=== PATIENT | male | born 1955 | race Hispanic/Latino ===

== ENCOUNTER → 2017-10-15 | Outpatient (CLI) | payer MEDICARE ==
[~2017-10-15] MED LIST: AEC81 PO; ALBU8.5H8 IH; AMIO200T5 PO; AMLO5TAB2 PO; ATOR10 PO; BUDE10.22 IH; DOCU100T PO; FERR-82 PO; FURO-152 PO; FURO40TA7 PO; IPRAHFA IH; ISOS30TA6 PO; LEVO50 PO; MECL-111 PO; METO25 PO; METO25TA6 PO; MV C1CAP5 PO; ONDA4TAB10 PO; PANT40TA25 PO; RIVA20TA PO; ROPI1TAB38 PO; SIMV20TA6 PO
== END | disposition home or self-care (01) ==
LOC: RAH 08:36
PROVIDERS: ATTEND Surgery
DX: K57.30 Diverticulosis of large intestine without perforation or abscess without bleeding (principal); K46.9 Unspecified abdominal hernia without obstruction or gangrene; M43.16 Spondylolisthesis, lumbar region; M51.37 Other intervertebral disc degeneration, lumbosacral region; I51.7 Cardiomegaly
CPT/HCPCS: 74150

== ENCOUNTER → 2017-10-24 | Outpatient (CLI) | payer MEDICARE ==
[~2017-10-24] VITALS: Ht 27.9 cm; Wt 160.6 kg
== END | disposition home or self-care (01) ==
LOC: DTH 10:19
PROVIDERS: ATTEND Surgery
DX: E11.9 Type 2 diabetes mellitus without complications (principal); E66.09 Other obesity due to excess calories
CPT/HCPCS: 97802

== ENCOUNTER 2017-11-11 04:50 | Inpatient (IN) | payer MEDICARE ==
[~2017-11-11] VITALS: Ht 180.3 cm; Wt 157.9 kg
[~2017-11-11 04:50] MED LIST changes: -AMLO5TAB2 PO; -ATOR10 PO; -BUDE10.22 IH; -FURO40TA7 PO; -ISOS30TA6 PO; -LEVO50 PO; -METO25 PO; -MV C1CAP5 PO; -PANT40TA25 PO
[2017-11-11] MEDS ORDERED: IPRATROPIUM/ALBUTEROL SULFATE 3 ML SOLUTION IH ONE ×2 (05:19→10:51)
[2017-11-11 05:23] LABS: BASOPHILS % (AUTO) 0.6 % (0.0-5.0); EOSINOPHILS % (AUTO) 1.3 % (0.0-8.0); HEMATOCRIT 38.4 % (42-54); LYMPHOCYTES % (AUTO) 10.8 % (21.0-51.0); MEAN CORPUSCULAR HEMOGLOBIN 26.5 pg (27.0-33.0); MEAN CORPUSCULAR HGB CONC 32.2 g/dL (32.0-36.0); MEAN CORPUSCULAR VOLUME 82.2 fL (79-99); MONOCYTES % (AUTO) 7.9 % (3.0-13.0); NEUTROPHILS % (AUTO) 79.4 % (40.0-77.0); NUCLEATED RED BLOOD CELLS 0.2 % (0.0-0.19); PLATELET COUNT (AUTO) 314 K/uL (130-400); RED BLOOD CELL COUNT(AUTO) 4.67 MIL/uL (4.50-6.20); RED CELL DISTRIBUTION WIDTH 19.4 % (11.0-15.5); WHITE BLOOD COUNT (AUTO) 9.8 K/uL (4.8-10.8)
[2017-11-11 05:27] LABS: ABG BASE EXCESS 5.3 mmol/L (-2.0-3.0); ABG HCO3 32.9 mmol/L (21.0-28.0); ABG OXYGEN SATURATION 72.8 % (95.0-99.0); ABG PCO2 61 mmHg (35-48)
[2017-11-11 05:44] LABS: CREATININE 1.6 mg/dL (0.5-1.5); POTASSIUM 3.8 mmol/L (3.5-5.1)
[2017-11-11 05:49] LABS: ALBUMIN 3.2 g/dL (3.5-5.0); BILIRUBIN,TOTAL 0.7 mg/dL (0.2-1.0); TOTAL PROTEIN, SERUM 8.6 g/dL (6.0-8.3)
[2017-11-11] MEDS ORDERED: FUROSEMIDE 10 MG/ML 2ML VIAL ONE (05:59)
[2017-11-11] MEDS ORDERED: ENOXAPARIN SODIUM 100 MG/1 ML SQ ONE (08:01)
[2017-11-11] MEDS ORDERED: HYDRALAZINE HCL 20 MG/ML VIAL IV PRN (09:00)
[2017-11-11] MEDS ORDERED: ONDANSETRON HCL 4 MG/2 ML VIAL IV PRN (09:00)
[2017-11-11] MEDS ORDERED: LACTULOSE 20 GM/30 ML UDCUP PO PRN (09:00)
[2017-11-11] MEDS: FAMOTIDINE 20MG TAB 20 MG TAB PO SCH ×2 (09:00→21:26)
[2017-11-11] MEDS ORDERED: ACETAMINOPHEN 325 MG TAB PO PRN ×2 (09:00)
[2017-11-11] MEDS ORDERED: MAG HYDROX/AL HYDROX/SIMETH ES 30 ML SUSP UDCUP PO PRN (09:00)
[2017-11-11] MEDS ORDERED: MORPHINE SULFATE 2 MG/ML 1ML SYG IV PRN (09:00)
[2017-11-11] MEDS ORDERED: NITROGLYCERIN 0.4 MG SL TAB SL PRN (09:00)
[2017-11-11] MEDS ORDERED: GUAIFENESIN-DM 200/20 MG 10 ML PO PRN (09:00)
[2017-11-11] MEDS: ENOXAPARIN SODIUM 40 MG/0.4 ML SYRINGE SQ SCH (09:00)
[2017-11-11] MEDS ORDERED: ACETAMINOPHEN-CODEINE 300/30MG TAB PO PRN (09:00)
[2017-11-11] MEDS: FUROSEMIDE 10 MG/ML 4ML VIAL IVP SCH ×2 (09:00→21:26)
[2017-11-11] MEDS ORDERED: FAMOTIDINE 20MG TAB 20 MG TAB ONE (09:57)
[2017-11-11] MEDS: IPRATROPIUM/ALBUTEROL SULFATE 3 ML SOLUTION IH SCH ×3 (11:15→23:51)
[2017-11-11 12:13] VITALS: BP 142/67
[2017-11-11 12:41] LABS: CREATINE KINASE MB 1.5 ng/mL (0.5-3.6); CREATINE KINASE, TOTAL 107 U/L (21-232); MYOGLOBIN 98 ng/mL (10-92); TROPONIN I < 0.04 ng/mL (0.00-0.06)
[2017-11-11] MEDS ORDERED: PANT40TA25 PO (12:51)
[2017-11-11] MEDS ORDERED: MV C1CAP5 PO (12:51)
[2017-11-11] MEDS ORDERED: AMLO5TAB2 PO (12:51)
[2017-11-11] MEDS ORDERED: ATOR10 PO (12:51)
[2017-11-11] MEDS ORDERED: LEVO50 PO (12:51)
[2017-11-11] MEDS ORDERED: BUDE10.22 IH (12:51)
[2017-11-11 16:03] VITALS: BP 101/66
[2017-11-11] MEDS ORDERED: ALBUTEROL SULFATE 0.083% 2.5 MG/3 ML INH IH SCH (18:00)
[2017-11-11] MEDS: BUDESONIDE 0.5 MG/2 ML INH IH SCH (18:04)
[2017-11-11 18:07] LABS: TOTAL PROTEIN, SERUM 7.6 g/dL (6.0-8.3)
[2017-11-11 19:04] VITALS: BP 108/38
[2017-11-11] MEDS: ROPINIROLE HCL 1 MG TABLET PO SCH (21:26)
[2017-11-11] MEDS: ATORVASTATIN CALCIUM 20 MG TABLET PO SCH (21:26)
[2017-11-11] MEDS: METOPROLOL TARTRATE 25 MG TAB PO SCH (21:26)
[2017-11-11 21:28] LABS: CREATINE KINASE MB 1.5 ng/mL (0.5-3.6); CREATINE KINASE, TOTAL 98 U/L (21-232); MYOGLOBIN 101 ng/mL (10-92); TROPONIN I < 0.04 ng/mL (0.00-0.06)
[2017-11-11 23:28] VITALS: BP 124/61
[2017-11-12 03:25] VITALS: BP 98/38
[2017-11-12 04:37] LABS: HEMATOCRIT 35.4 % (42-54); MEAN CORPUSCULAR HEMOGLOBIN 25.8 pg (27.0-33.0); MEAN CORPUSCULAR HGB CONC 31.5 g/dL (32.0-36.0); MEAN CORPUSCULAR VOLUME 82.1 fL (79-99); PLATELET COUNT (AUTO) 255 K/uL (130-400); RED BLOOD CELL COUNT(AUTO) 4.32 MIL/uL (4.50-6.20); RED CELL DISTRIBUTION WIDTH 19.2 % (11.0-15.5); WHITE BLOOD COUNT (AUTO) 8.3 K/uL (4.8-10.8)
[2017-11-12 04:47] LABS: CREATININE 1.6 mg/dL (0.5-1.5); POTASSIUM 3.7 mmol/L (3.5-5.1)
[2017-11-12 04:58] LABS: B-TYPE NATRIURETIC PEPTIDE 221 pg/mL (0-100)
[2017-11-12] MEDS: IPRATROPIUM/ALBUTEROL SULFATE 3 ML SOLUTION IH SCH ×4 (06:42→23:09)
[2017-11-12] MEDS: BUDESONIDE 0.5 MG/2 ML INH IH SCH ×2 (06:56→17:41)
[2017-11-12 07:33] VITALS: BP 120/69
[2017-11-12] MEDS: PANTOPRAZOLE SODIUM 40 MG TABLET.DR PO SCH (09:00)
[2017-11-12] MEDS ORDERED: AMLODIPINE BESYLATE 5 MG TAB PO SCH (09:00)
[2017-11-12] MEDS: ENOXAPARIN SODIUM 40 MG/0.4 ML SYRINGE SQ SCH (09:00)
[2017-11-12] MEDS: LEVOTHYROXINE 50 MCG TABLET PO SCH (09:00)
[2017-11-12] MEDS: AMIODARONE HCL 200 MG TABLET PO SCH (09:00)
[2017-11-12] MEDS: ASPIRIN 81 MG EC TAB PO SCH (09:00)
[2017-11-12] MEDS: FUROSEMIDE 10 MG/ML 4ML VIAL IVP SCH ×2 (09:00→20:29)
[2017-11-12] MEDS: METOPROLOL TARTRATE 25 MG TAB PO SCH ×2 (09:00→20:29)
[2017-11-12] MEDS: SE TAN PLUS PO SCH (09:00)
[2017-11-12] MEDS: FAMOTIDINE 20MG TAB 20 MG TAB PO SCH ×2 (09:00→20:29)
[2017-11-12 09:25] LABS: INR 1.15 (0.85-1.15); PARTIAL THROMBOPLASTIN TIME 29.8 SEC (26.3-35.5)
[2017-11-12 11:14] VITALS: BP 142/67
[2017-11-12 13:48] LABS: APPEARANCE BODY FLUID SLIGHTLY CLOUDY (CLEAR); BODY FLUID WBC 240 /cu. mm.; COLOR,BODY FLUID ORANGE (LT YELLOW); SPECIMENTYPE,BODY FLUID PLEURAL; TOTAL VOLUME,BODY FLUID 1000 mL
[2017-11-12 13:49] LABS: BODY FLUID RBC 7675 /cu. mm.
[2017-11-12 14:09] LABS: BF LYMPHOCYTE 74 %; BF MESOTHELIAL 5 %; BF MONOCYTE 9 %
[2017-11-12 16:34] VITALS: BP 100/51
[2017-11-12 19:14] VITALS: BP 131/63
[2017-11-12] MEDS: ATORVASTATIN CALCIUM 20 MG TABLET PO SCH (20:29)
[2017-11-12] MEDS: ROPINIROLE HCL 1 MG TABLET PO SCH (20:29)
[2017-11-12 23:12] VITALS: BP 114/51
[2017-11-13 04:00] LABS: HEMATOCRIT 36.1 % (42-54); MEAN CORPUSCULAR HEMOGLOBIN 26.7 pg (27.0-33.0); MEAN CORPUSCULAR HGB CONC 32.5 g/dL (32.0-36.0); MEAN CORPUSCULAR VOLUME 82.4 fL (79-99); PLATELET COUNT (AUTO) 270 K/uL (130-400); RED BLOOD CELL COUNT(AUTO) 4.38 MIL/uL (4.50-6.20); RED CELL DISTRIBUTION WIDTH 19.2 % (11.0-15.5)
[2017-11-13 04:05] VITALS: BP 108/64
[2017-11-13 04:17] LABS: CREATININE 1.4 mg/dL (0.5-1.5); POTASSIUM 3.7 mmol/L (3.5-5.1)
[2017-11-13] MEDS: BUDESONIDE 0.5 MG/2 ML INH IH SCH ×2 (05:07→19:23)
[2017-11-13] MEDS: IPRATROPIUM/ALBUTEROL SULFATE 3 ML SOLUTION IH SCH ×4 (05:07→23:30)
[2017-11-13 07:00] VITALS: BP 140/95
[2017-11-13] MEDS: FAMOTIDINE 20MG TAB 20 MG TAB PO SCH ×2 (08:47→20:25)
[2017-11-13] MEDS: AMIODARONE HCL 200 MG TABLET PO SCH (10:05)
[2017-11-13] MEDS: ASPIRIN 81 MG EC TAB PO SCH (10:05)
[2017-11-13] MEDS: PANTOPRAZOLE SODIUM 40 MG TABLET.DR PO SCH (10:05)
[2017-11-13] MEDS: FUROSEMIDE 10 MG/ML 4ML VIAL IVP SCH ×2 (10:05→20:26)
[2017-11-13] MEDS: ENOXAPARIN SODIUM 40 MG/0.4 ML SYRINGE SQ SCH (10:06)
[2017-11-13] MEDS: LEVOTHYROXINE 50 MCG TABLET PO SCH (10:06)
[2017-11-13] MEDS: SE TAN PLUS PO SCH (10:08)
[2017-11-13 11:00] VITALS: BP 143/68
[2017-11-13 16:00] VITALS: BP 110/46
[2017-11-13 19:53] VITALS: BP 136/55
[2017-11-13] MEDS: ATORVASTATIN CALCIUM 20 MG TABLET PO SCH (20:25)
[2017-11-13] MEDS: METOPROLOL TARTRATE 25 MG TAB PO SCH (20:26)
[2017-11-13] MEDS: ROPINIROLE HCL 1 MG TABLET PO SCH (20:33)
[2017-11-13 23:32] VITALS: BP 149/67
[2017-11-14 04:03] LABS: CREATININE 1.4 mg/dL (0.5-1.5); POTASSIUM 3.7 mmol/L (3.5-5.1)
[2017-11-14 04:05] VITALS: BP 116/41
[2017-11-14] MEDS: IPRATROPIUM/ALBUTEROL SULFATE 3 ML SOLUTION IH SCH ×2 (06:06→11:27)
[2017-11-14] MEDS: BUDESONIDE 0.5 MG/2 ML INH IH SCH (06:22)
[2017-11-14 07:00] VITALS: BP 122/55
[2017-11-14] MEDS ORDERED: FUROSEMIDE 40 MG TABLET PO SCH (09:00)
[2017-11-14] MEDS: METOPROLOL TARTRATE 25 MG TAB PO SCH (09:07)
[2017-11-14] MEDS: AMIODARONE HCL 200 MG TABLET PO SCH (09:07)
[2017-11-14] MEDS: LEVOTHYROXINE 50 MCG TABLET PO SCH (09:07)
[2017-11-14] MEDS: PANTOPRAZOLE SODIUM 40 MG TABLET.DR PO SCH (09:07)
[2017-11-14] MEDS: FAMOTIDINE 20MG TAB 20 MG TAB PO SCH (09:07)
[2017-11-14] MEDS: ASPIRIN 81 MG EC TAB PO SCH (09:07)
[2017-11-14] MEDS: ENOXAPARIN SODIUM 40 MG/0.4 ML SYRINGE SQ SCH (09:08)
[2017-11-14] MEDS: SE TAN PLUS PO SCH (09:13)
[2017-11-14] MEDS ORDERED: FURO40TA7 PO (09:44)
[2017-11-14] MEDS ORDERED: METO25 PO (09:44)
[2017-11-14 11:00] VITALS: BP 118/58
[2017-11-14 13:58] LABS: ABG BASE EXCESS 11.8 mmol/L (-2.0-3.0); ABG HCO3 39.1 mmol/L (21.0-28.0); ABG OXYGEN SATURATION 94.1 % (95.0-99.0); ABG PCO2 62 mmHg (35-48)
== END 2017-11-14 17:50 | disposition home or self-care (01) | DRG 291 ==
LOC: EDH 04:50 → EDHIP 08:53 → 2CH 12:14 → 2AH 11-13 00:03
PROVIDERS: ADMIT Internal Medicine; ATTEND Internal Medicine
PROC: 5A09357 Assistance with Respiratory Ventilation, Less than 24 Consecutive Hours, Continuous Positive Airway Pressure (ICD-10-PCS; 2017-11-11)
PROC: 0W9B3ZZ Drainage of Left Pleural Cavity, Percutaneous Approach (ICD-10-PCS; principal; 2017-11-12)
DX: I13.0 Hypertensive heart and chronic kidney disease with heart failure and stage 1 through stage 4 chronic kidney disease, or unspecified chronic kidney disease (principal); I50.33 Acute on chronic diastolic (congestive) heart failure; J96.01 Acute respiratory failure with hypoxia; N17.9 Acute kidney failure, unspecified; Z68.42 Body mass index [BMI] 45.0-49.9, adult; J90 Pleural effusion, not elsewhere classified; E11.21 Type 2 diabetes mellitus with diabetic nephropathy; E11.22 Type 2 diabetes mellitus with diabetic chronic kidney disease; N18.3 Chronic kidney disease, stage 3 (moderate); I48.91 Unspecified atrial fibrillation; E66.01 Morbid (severe) obesity due to excess calories; E03.9 Hypothyroidism, unspecified; E78.5 Hyperlipidemia, unspecified; G47.33 Obstructive sleep apnea (adult) (pediatric); I25.10 Atherosclerotic heart disease of native coronary artery without angina pectoris; I35.0 Nonrheumatic aortic (valve) stenosis; I45.9 Conduction disorder, unspecified; I65.29 Occlusion and stenosis of unspecified carotid artery; K44.9 Diaphragmatic hernia without obstruction or gangrene; Z79.82 Long term (current) use of aspirin; Z82.49 Family history of ischemic heart disease and other diseases of the circulatory system; Z87.891 Personal history of nicotine dependence; Z91.19 Patient's noncompliance with other medical treatment and regimen; Z95.0 Presence of cardiac pacemaker; Z95.1 Presence of aortocoronary bypass graft
CPT/HCPCS: 32555; 36415; 36600; 71045; 71250; 80048; 80053; 82550; 82553; 82803; 83605; 83615; 83874; 83880; 84155; 84157; 84484; 85025; 85027; 85378; 85610; 85730; 87071; 87205; 88108; 88305; 89051; 93005; 93306; 93970; 94640; 94664; 94760; 99291; J1650; J1940

== ENCOUNTER 2017-12-20 13:15 | Observation (INO) | payer MEDICARE ==
[~2017-12-20] VITALS: Ht 165.1 cm; Wt 158.8 kg
[~2017-12-20 13:15] MED LIST changes: +AMLO5TAB2 PO; +ATOR10 PO; +BUDE10.22 IH; -DOCU100T PO; -FERR-82 PO; -FURO-152 PO; +FURO40TA7 PO; -IPRAHFA IH; +LEVO50 PO; -MECL-111 PO; +METO25 PO; -METO25TA6 PO; +MV C1CAP5 PO; -ONDA4TAB10 PO; +PANT40TA25 PO; -RIVA20TA PO; -SIMV20TA6 PO
[2017-12-20] MEDS ORDERED: ASPIRIN 325MG EC TAB 325 MG TABLET.DR PO ONE (13:39)
[2017-12-20 13:40] LABS: BASOPHILS % (AUTO) 0.8 % (0.0-5.0); EOSINOPHILS % (AUTO) 2.5 % (0.0-8.0); HEMATOCRIT 37.6 % (42-54); LYMPHOCYTES % (AUTO) 12.2 % (21.0-51.0); MEAN CORPUSCULAR HEMOGLOBIN 26.2 pg (27.0-33.0); MEAN CORPUSCULAR HGB CONC 32.7 g/dL (32.0-36.0); MEAN CORPUSCULAR VOLUME 80.1 fL (79-99); MONOCYTES % (AUTO) 6.4 % (3.0-13.0); NEUTROPHILS % (AUTO) 78.1 % (40.0-77.0); PLATELET COUNT (AUTO) 280 K/uL (130-400); RED BLOOD CELL COUNT(AUTO) 4.69 MIL/uL (4.50-6.20); RED CELL DISTRIBUTION WIDTH 18.2 % (11.0-15.5); WHITE BLOOD COUNT (AUTO) 9.5 K/uL (4.8-10.8)
[2017-12-20 13:49] LABS: CREATININE 1.4 mg/dL (0.5-1.5); POTASSIUM 3.8 mmol/L (3.5-5.1)
[2017-12-20 13:50] LABS: INR 1.07 (0.85-1.15); PARTIAL THROMBOPLASTIN TIME 30.5 SEC (26.3-35.5); PROTHROMBIN TIME 11.2 SEC (9.6-11.6)
[2017-12-20 14:03] LABS: BILIRUBIN,TOTAL 0.5 mg/dL (0.2-1.0); TOTAL PROTEIN, SERUM 8.1 g/dL (6.0-8.3)
[2017-12-20] MEDS ORDERED: SODIUM CHLORIDE 0.9% 10 ML VIAL IVP PRN (15:00)
[2017-12-20] MEDS: NITROGLYCERIN 1GM/1 INCH PACKET TD SCH ×2 (15:00→23:50)
[2017-12-20] MEDS ORDERED: ENOXAPARIN SODIUM 40 MG/0.4 ML SYRINGE SQ ONE (17:56)
[2017-12-20] MEDS ORDERED: NITROGLYCERIN 1GM/1 INCH PACKET TD ONE (17:57)
[2017-12-20] MEDS ORDERED: DEXTROSE 50%-WATER 50 ML DISP.SYRIN IV PRN (18:00)
[2017-12-20] MEDS ORDERED: GLUCAGON 1MG KIT 1 MG ML IM PRN (18:00)
[2017-12-20 18:28] LABS: CREATINE KINASE MB 0.9 ng/mL (0.5-3.6); CREATINE KINASE, TOTAL 53 U/L (21-232); MYOGLOBIN 54 ng/mL (10-92); TROPONIN I < 0.04 ng/mL (0.00-0.06)
[2017-12-20 18:43] VITALS: BP 134/73
[2017-12-20 19:43] VITALS: BP 119/57
[2017-12-20 20:00] VITALS: BP 119/57
[2017-12-20] MEDS: INSULIN HUMULIN R 100 UNIT/ML 3ML SQ SCH (21:00)
[2017-12-20 23:12] LABS: CREATINE KINASE MB 0.9 ng/mL (0.5-3.6); CREATINE KINASE, TOTAL 54 U/L (21-232); MYOGLOBIN 54 ng/mL (10-92); TROPONIN I < 0.04 ng/mL (0.00-0.06)
[2017-12-20 23:58] VITALS: BP 137/63
[2017-12-21 04:00] VITALS: BP 126/55
[2017-12-21] MEDS: INSULIN HUMULIN R 100 UNIT/ML 3ML SQ SCH ×2 (06:11→11:30)
[2017-12-21] MEDS: NITROGLYCERIN 1GM/1 INCH PACKET TD SCH ×3 (06:31→15:52)
[2017-12-21 07:00] VITALS: BP 126/62
[2017-12-21] MEDS ORDERED: REGADENOSON 0.4 MG/5 ML PF SYG IVP SCH (08:00)
[2017-12-21] MEDS ORDERED: ASPIRIN 325 MG TABLET PO SCH (09:00)
[2017-12-21 12:10] VITALS: BP 175/76
[2017-12-21] MEDS ORDERED: ISOS30TA6 PO (15:21)
== END 2017-12-21 17:10 | disposition home or self-care (01) ==
LOC: EDH 13:15 → INTOOBSV 14:40 → EDHIP 14:40 → 2AH 18:45
PROVIDERS: ADMIT Family Medicine; ATTEND Family Medicine
DX: R07.89 Other chest pain (principal); I25.10 Atherosclerotic heart disease of native coronary artery without angina pectoris; E78.5 Hyperlipidemia, unspecified; I12.9 Hypertensive chronic kidney disease with stage 1 through stage 4 chronic kidney disease, or unspecified chronic kidney disease; N18.3 Chronic kidney disease, stage 3 (moderate); E04.1 Nontoxic single thyroid nodule; E11.22 Type 2 diabetes mellitus with diabetic chronic kidney disease; J44.9 Chronic obstructive pulmonary disease, unspecified; E03.9 Hypothyroidism, unspecified; I45.10 Unspecified right bundle-branch block; L40.9 Psoriasis, unspecified; E66.01 Morbid (severe) obesity due to excess calories; J90 Pleural effusion, not elsewhere classified; I48.91 Unspecified atrial fibrillation; I48.92 Unspecified atrial flutter; Z95.1 Presence of aortocoronary bypass graft; Z96.651 Presence of right artificial knee joint; Z87.891 Personal history of nicotine dependence; Z79.899 Other long term (current) drug therapy
CPT/HCPCS: 36415; 71045; 74176; 78452; 80053; 82550 ×3; 82553 ×3; 82948 ×3; 83874 ×3; 84484 ×3; 85025; 85610; 85730; 93005 ×2; 93880; 99285; A9500 ×2; G0378 ×26; J1650; J2785

== ENCOUNTER 2018-04-11 03:30 | Inpatient (IN) | payer MEDICARE ==
[~2018-04-11] VITALS: Ht 170.2 cm; Wt 156.9 kg
[~2018-04-11 03:30] MED LIST changes: -ALBU8.5H8 IH; -AMLO5TAB2 PO; +AMLO5TAB7 PO; -BUDE10.22 IH; +ISOS30TA6 PO; -LEVO50 PO; +LEVO75TA10 PO; -MV C1CAP5 PO; -ROPI1TAB38 PO; +ROPI2TAB29 PO; +VITAD50000 PO
[2018-04-11] MEDS ORDERED: FUROSEMIDE 10 MG/ML 4ML VIAL ONE ×2 (03:51→05:47)
[2018-04-11 04:15] LABS: ABG BASE EXCESS 6.5 mmol/L (-2.0-3.0); ABG HCO3 33.5 mmol/L (21.0-28.0); ABG OXYGEN SATURATION 95.5 % (95.0-99.0); ABG PCO2 57 mmHg (35-48)
[2018-04-11 04:20] LABS: BASOPHILS % (AUTO) 0.7 % (0.0-5.0); HEMATOCRIT 34.8 % (42-54); LYMPHOCYTES % (AUTO) 11.8 % (21.0-51.0); MEAN CORPUSCULAR HEMOGLOBIN 27.4 pg (27.0-33.0); MEAN CORPUSCULAR HGB CONC 32.7 g/dL (32.0-36.0); MEAN CORPUSCULAR VOLUME 83.8 fL (79-99); MONOCYTES % (AUTO) 7.8 % (3.0-13.0); NEUTROPHILS % (AUTO) 77.7 % (40.0-77.0); PLATELET COUNT (AUTO) 304 K/uL (130-400); RED BLOOD CELL COUNT(AUTO) 4.16 MIL/uL (4.50-6.20); WHITE BLOOD COUNT (AUTO) 8.7 K/uL (4.8-10.8)
[2018-04-11 04:32] LABS: CREATININE 1.6 mg/dL (0.5-1.5); POTASSIUM 3.9 mmol/L (3.5-5.1)
[2018-04-11 04:37] LABS: BILIRUBIN,TOTAL 0.5 mg/dL (0.2-1.0); TOTAL PROTEIN, SERUM 8.2 g/dL (6.0-8.3)
[2018-04-11 04:43] LABS: B-TYPE NATRIURETIC PEPTIDE 266 pg/mL (0-100)
[2018-04-11] MEDS ORDERED: POTASSIUM CHLORIDE 10% ELIXIR 20 MEQ/15 ML UDCUP PO PRN (06:15)
[2018-04-11] MEDS ORDERED: LIDOCAINE HCL-MPF 1% 2ML VIAL IVP PRN (06:15)
[2018-04-11] MEDS: FUROSEMIDE 10 MG/ML 4ML VIAL IV SCH ×2 (06:15→18:45)
[2018-04-11] MEDS ORDERED: POTASSIUM CHLORIDE 20 MEQ ERTAB PO PRN (06:15)
[2018-04-11] MEDS ORDERED: POTASSIUM CHLORIDE 10MEQ/100ML 100 ML IV PRN (06:15)
[2018-04-11 08:10] VITALS: BP 151/63
[2018-04-11] MEDS ORDERED: ERGOCALCIFEROL (VITAMIN D2) 50,000 UNIT CAPSULE PO SCH (09:00)
[2018-04-11] MEDS ORDERED: PANTOPRAZOLE SODIUM 40 MG TABLET.DR PO SCH (09:00)
[2018-04-11] MEDS: LEVOTHYROXINE 75 MCG TABLET PO SCH (09:27)
[2018-04-11] MEDS: METHYLPREDNISOLONE SOD SUCC 125MG/2ML VIAL IV SCH ×2 (09:27→20:36)
[2018-04-11] MEDS: ENOXAPARIN SODIUM 40 MG/0.4 ML SYRINGE SQ SCH (09:27)
[2018-04-11] MEDS: METOPROLOL TARTRATE 50 MG TAB PO SCH ×2 (09:28→20:35)
[2018-04-11] MEDS: ASPIRIN 81 MG EC TAB PO SCH (09:28)
[2018-04-11] MEDS: ISOSORBIDE MONO 30MG TAB SR PO SCH (09:28)
[2018-04-11] MEDS: PANTOPRAZOLE SODIUM 40 MG TABLET.DR PO SCH (09:28)
[2018-04-11] MEDS: AMIODARONE HCL 200 MG TABLET PO SCH (09:28)
[2018-04-11] MEDS: AMLODIPINE BESYLATE 5 MG TAB PO SCH (09:30)
[2018-04-11] MEDS: IPRATROPIUM/ALBUTEROL SULFATE 3 ML SOLUTION IH SCH ×4 (10:02→21:38)
[2018-04-11] MEDS ORDERED: BUDE10.22 IH (10:44)
[2018-04-11] MEDS ORDERED: LORA1TAB3 PO (10:44)
[2018-04-11] MEDS ORDERED: ALBU0.63 IH (10:44)
[2018-04-11 11:24] VITALS: BP 103/48
[2018-04-11 13:25] LABS: APPEARANCE,URINE Clear (CLEAR); BILIRUBIN,URINE Negative (NEGATIVE); COLOR,URINE Yellow (YELLOW); GLUCOSE, URINE (UA) Negative (NEGATIVE); KETONES,URINE Negative (NEGATIVE); LEUKOCYTE ESTERASE ,URINE Negative (NEGATIVE); NITRATE,URINE Negative (NEGATIVE); OCCULT BLOOD,URINE Negative (NEGATIVE); PROTEIN,URINE Negative (NEGATIVE)
[2018-04-11 16:11] VITALS: BP 109/57
[2018-04-11 19:33] VITALS: BP 118/62
[2018-04-11] MEDS: ATORVASTATIN CALCIUM 20 MG TABLET PO SCH (20:35)
[2018-04-11] MEDS: ROPINIROLE HCL 1 MG TABLET PO SCH (20:36)
[2018-04-11 23:47] VITALS: BP 124/63
[2018-04-12] MEDS: IPRATROPIUM/ALBUTEROL SULFATE 3 ML SOLUTION IH SCH ×3 (01:59→10:07)
[2018-04-12 03:53] LABS: BASOPHILS % (AUTO) 0.2 % (0.0-5.0); HEMATOCRIT 33.4 % (42-54); LYMPHOCYTES % (AUTO) 4.1 % (21.0-51.0); MEAN CORPUSCULAR HEMOGLOBIN 26.2 pg (27.0-33.0); MEAN CORPUSCULAR HGB CONC 31.7 g/dL (32.0-36.0); MEAN CORPUSCULAR VOLUME 82.8 fL (79-99); MONOCYTES % (AUTO) 1.3 % (3.0-13.0); NEUTROPHILS % (AUTO) 94.4 % (40.0-77.0); PLATELET COUNT (AUTO) 258 K/uL (130-400); RED BLOOD CELL COUNT(AUTO) 4.03 MIL/uL (4.50-6.20); RED CELL DISTRIBUTION WIDTH 16.7 % (11.0-15.5)
[2018-04-12 03:57] VITALS: BP 103/66
[2018-04-12 04:03] LABS: CREATININE 1.7 mg/dL (0.5-1.5); POTASSIUM 3.8 mmol/L (3.5-5.1)
[2018-04-12] MEDS: FUROSEMIDE 10 MG/ML 4ML VIAL IV SCH ×2 (07:26→17:31)
[2018-04-12 07:41] VITALS: BP 125/54
[2018-04-12] MEDS: ENOXAPARIN SODIUM 40 MG/0.4 ML SYRINGE SQ SCH (09:55)
[2018-04-12] MEDS: METHYLPREDNISOLONE SOD SUCC 125MG/2ML VIAL IV SCH (09:55)
[2018-04-12] MEDS: PANTOPRAZOLE SODIUM 40 MG TABLET.DR PO SCH (09:56)
[2018-04-12] MEDS: AMLODIPINE BESYLATE 5 MG TAB PO SCH (09:56)
[2018-04-12] MEDS: ISOSORBIDE MONO 30MG TAB SR PO SCH (09:56)
[2018-04-12] MEDS: ASPIRIN 81 MG EC TAB PO SCH (09:56)
[2018-04-12] MEDS: METOPROLOL TARTRATE 50 MG TAB PO SCH ×2 (09:57→21:41)
[2018-04-12] MEDS: AMIODARONE HCL 200 MG TABLET PO SCH (09:57)
[2018-04-12] MEDS: LEVOTHYROXINE 75 MCG TABLET PO SCH (09:57)
[2018-04-12 11:23] VITALS: BP 124/52
[2018-04-12 16:15] VITALS: BP 111/66
[2018-04-12 19:45] VITALS: BP 123/54
[2018-04-12] MEDS: ROPINIROLE HCL 1 MG TABLET PO SCH (21:41)
[2018-04-12] MEDS: ATORVASTATIN CALCIUM 20 MG TABLET PO SCH (21:41)
[2018-04-12 23:38] VITALS: BP 117/46
[2018-04-13 03:28] VITALS: BP 126/60
[2018-04-13] MEDS: FUROSEMIDE 10 MG/ML 4ML VIAL IV SCH (05:29)
[2018-04-13 07:42] VITALS: BP 131/63
[2018-04-13] MEDS: LEVOTHYROXINE 75 MCG TABLET PO SCH (08:24)
[2018-04-13] MEDS: ASPIRIN 81 MG EC TAB PO SCH (08:24)
[2018-04-13] MEDS: AMLODIPINE BESYLATE 5 MG TAB PO SCH (08:24)
[2018-04-13] MEDS: PANTOPRAZOLE SODIUM 40 MG TABLET.DR PO SCH (08:24)
[2018-04-13] MEDS: AMIODARONE HCL 200 MG TABLET PO SCH (08:24)
[2018-04-13] MEDS: METOPROLOL TARTRATE 50 MG TAB PO SCH (08:25)
[2018-04-13] MEDS: ISOSORBIDE MONO 30MG TAB SR PO SCH (08:25)
[2018-04-13] MEDS: ENOXAPARIN SODIUM 40 MG/0.4 ML SYRINGE SQ SCH (08:26)
[2018-04-13 11:31] VITALS: BP 125/50
[2018-04-13 16:00] VITALS: BP 117/69
[2018-04-14] MEDS ORDERED: AMIODARONE HCL 200 MG TABLET PO SCH (09:00)
== END 2018-04-13 17:44 | disposition home or self-care (01) | DRG 291 ==
LOC: EDH 03:30 → EDHIP 05:45 → 2DH 08:08
PROVIDERS: ADMIT Internal Medicine; ATTEND Internal Medicine
DX: I13.0 Hypertensive heart and chronic kidney disease with heart failure and stage 1 through stage 4 chronic kidney disease, or unspecified chronic kidney disease (principal); I50.43 Acute on chronic combined systolic (congestive) and diastolic (congestive) heart failure; J96.21 Acute and chronic respiratory failure with hypoxia; J96.22 Acute and chronic respiratory failure with hypercapnia; E66.2 Morbid (severe) obesity with alveolar hypoventilation; Z68.43 Body mass index [BMI] 50.0-59.9, adult; J90 Pleural effusion, not elsewhere classified; I35.0 Nonrheumatic aortic (valve) stenosis; N18.3 Chronic kidney disease, stage 3 (moderate); E78.5 Hyperlipidemia, unspecified; J44.9 Chronic obstructive pulmonary disease, unspecified; E03.9 Hypothyroidism, unspecified; I25.10 Atherosclerotic heart disease of native coronary artery without angina pectoris; I45.10 Unspecified right bundle-branch block; Z96.651 Presence of right artificial knee joint; Z79.899 Other long term (current) drug therapy; Z99.81 Dependence on supplemental oxygen; Z95.0 Presence of cardiac pacemaker; Z95.1 Presence of aortocoronary bypass graft; Z90.49 Acquired absence of other specified parts of digestive tract; Z87.891 Personal history of nicotine dependence; Z83.3 Family history of diabetes mellitus; Z80.3 Family history of malignant neoplasm of breast; Z82.3 Family history of stroke; Z82.0 Family history of epilepsy and other diseases of the nervous system; Z82.49 Family history of ischemic heart disease and other diseases of the circulatory system; Z82.5 Family history of asthma and other chronic lower respiratory diseases
CPT/HCPCS: 36415; 36600; 71045; 80048; 80053; 81003; 82550; 82803; 83880; 84484; 85025; 87804; 93005; 93970; 94640; 94664; 99291; J1650; J1940; J2930

== ENCOUNTER 2018-06-01 09:02 | Emergency (ER) | payer MEDICARE ==
[~2018-06-01 09:02] MED LIST changes: +ALBU0.63 IH; -AMIO200T5 PO; +BUDE10.22 IH; +LORA1TAB3 PO
[2018-06-01] MEDS ORDERED: FUROSEMIDE 10 MG/ML 2ML VIAL ONE (09:37)
[2018-06-01 09:38] LABS: EOSINOPHILS % (AUTO) 1.6 % (0.0-8.0); HEMATOCRIT 37.6 % (42-54); LYMPHOCYTES % (AUTO) 11.9 % (21.0-51.0); MEAN CORPUSCULAR HEMOGLOBIN 26.4 pg (27.0-33.0); MEAN CORPUSCULAR HGB CONC 32.3 g/dL (32.0-36.0); MEAN CORPUSCULAR VOLUME 81.6 fL (79-99); MONOCYTES % (AUTO) 7.5 % (3.0-13.0); PLATELET COUNT (AUTO) 305 K/uL (130-400); RED BLOOD CELL COUNT(AUTO) 4.61 MIL/uL (4.50-6.20); RED CELL DISTRIBUTION WIDTH 16.6 % (11.0-15.5); WHITE BLOOD COUNT (AUTO) 10.1 K/uL (4.8-10.8)
[2018-06-01] MEDS ORDERED: FUROSEMIDE 10 MG/ML 4ML VIAL ONE (09:38)
[2018-06-01] MEDS ORDERED: ALBUTEROL SULFATE 0.083% 2.5 MG/3 ML INH IH ONE (09:44)
[2018-06-01 09:47] LABS: CREATININE 1.6 mg/dL (0.5-1.5); POTASSIUM 3.7 mmol/L (3.5-5.1)
[2018-06-01 09:52] LABS: ALBUMIN 3.2 g/dL (3.5-5.0); BILIRUBIN,TOTAL 0.8 mg/dL (0.2-1.0); TOTAL PROTEIN, SERUM 8.3 g/dL (6.0-8.3)
[2018-06-01] MEDS ORDERED: AZITHROMYCIN 250 MG TABLET PO ONE (11:39)
[2018-06-01] MEDS ORDERED: PREDNISONE 20 MG TABLET ONE (11:40)
== END 2018-06-01 11:57 | disposition home or self-care (01) ==
LOC: EDH 09:02
DX: J20.9 Acute bronchitis, unspecified (principal); R60.0 Localized edema; I25.810 Atherosclerosis of coronary artery bypass graft(s) without angina pectoris; E78.5 Hyperlipidemia, unspecified; I10 Essential (primary) hypertension; E03.9 Hypothyroidism, unspecified; E66.9 Obesity, unspecified; Z90.49 Acquired absence of other specified parts of digestive tract; Z87.891 Personal history of nicotine dependence; Z68.43 Body mass index [BMI] 50.0-59.9, adult
CPT/HCPCS: 36415; 71046; 80053; 83880; 84484; 85025; 93005; 94640; 96374; 99284; J1940 ×2

== ENCOUNTER 2019-01-26 07:08 | Emergency (ER) | payer MEDICARE ==
[~2019-01-26 07:08] MED LIST changes: -AMLO5TAB7 PO; +AMLO5TAB9 PO
[2019-01-26] MEDS ORDERED: ASPIRIN 325 MG TABLET ONE (07:31)
[2019-01-26 07:34] LABS: BASOPHILS % (AUTO) 1.3 % (0.0-5.0); EOSINOPHILS % (AUTO) 1.4 % (0.0-8.0); HEMATOCRIT 35.1 % (42-54); LYMPHOCYTES % (AUTO) 10.1 % (21.0-51.0); MEAN CORPUSCULAR HEMOGLOBIN 25.2 pg (27.0-33.0); MEAN CORPUSCULAR HGB CONC 31.3 g/dL (32.0-36.0); MEAN CORPUSCULAR VOLUME 80.7 fL (79-99); MONOCYTES % (AUTO) 8.6 % (3.0-13.0); NEUTROPHILS % (AUTO) 78.6 % (40.0-77.0); NUCLEATED RED BLOOD CELLS 0.1 % (0.0-0.19); PLATELET COUNT (AUTO) 258 K/uL (130-400); RED BLOOD CELL COUNT(AUTO) 4.35 MIL/uL (4.50-6.20); RED CELL DISTRIBUTION WIDTH 18.1 % (11.0-15.5); WHITE BLOOD COUNT (AUTO) 9.2 K/uL (4.8-10.8)
[2019-01-26] MEDS ORDERED: NITROGLYCERIN 1GM/1 INCH PACKET TD ONE (07:42)
[2019-01-26] MEDS ORDERED: FUROSEMIDE 10 MG/ML 4ML VIAL ONE ×2 (07:42→09:23)
[2019-01-26 07:46] LABS: CREATININE 1.7 mg/dL (0.5-1.5); POTASSIUM 3.7 mmol/L (3.5-5.1)
[2019-01-26 07:48] LABS: INR 1.09 (0.85-1.15); PARTIAL THROMBOPLASTIN TIME 33.4 SEC (26.3-35.5); PROTHROMBIN TIME 11.4 SEC (9.6-11.6)
[2019-01-26 07:54] LABS: ALBUMIN 2.9 g/dL (3.5-5.0); BILIRUBIN,TOTAL 0.7 mg/dL (0.2-1.0); TOTAL PROTEIN, SERUM 7.9 g/dL (6.0-8.3)
[2019-01-26 08:00] LABS: B-TYPE NATRIURETIC PEPTIDE 419 pg/mL (0-100)
[2019-01-26 11:07] LABS: ABG BASE EXCESS 8.2 mmol/L (-2.0-3.0); ABG OXYGEN SATURATION 96.2 % (95.0-99.0); ABG PCO2 63 mmHg (35-48)
== END 2019-01-26 12:13 | disposition home or self-care (01) ==
LOC: EDH 07:08
DX: I11.0 Hypertensive heart disease with heart failure (principal); I50.9 Heart failure, unspecified; R06.00 Dyspnea, unspecified; E03.9 Hypothyroidism, unspecified; E78.5 Hyperlipidemia, unspecified; J44.9 Chronic obstructive pulmonary disease, unspecified; Z95.0 Presence of cardiac pacemaker; Z98.890 Other specified postprocedural states; Z87.891 Personal history of nicotine dependence
CPT/HCPCS: 36415; 36600; 71045; 80053; 82550; 82803; 83880; 84484; 85025; 85610; 85730; 93005; 96374; 99291; J1940 ×2

== ENCOUNTER 2019-03-11 08:54 | Observation (INO) | payer MEDICARE ==
[~2019-03-11 08:54] MED LIST changes: -ALBU0.63 IH; +ALBU90AE IH; +AMIO200T5 PO; +BUDE10.2 IH; -BUDE10.22 IH; -LORA1TAB3 PO; -PANT40TA25 PO; -VITAD50000 PO
[2019-03-11 09:13] LABS: BASOPHILS % (AUTO) 0.7 % (0.0-5.0); EOSINOPHILS % (AUTO) 1.5 % (0.0-8.0); HEMATOCRIT 33.3 % (42-54); LYMPHOCYTES % (AUTO) 5.8 % (21.0-51.0); MEAN CORPUSCULAR HEMOGLOBIN 24.4 pg (27.0-33.0); MEAN CORPUSCULAR HGB CONC 30.8 g/dL (32.0-36.0); MEAN CORPUSCULAR VOLUME 79.2 fL (79-99); MONOCYTES % (AUTO) 9.3 % (3.0-13.0); NEUTROPHILS % (AUTO) 82.7 % (40.0-77.0); PLATELET COUNT (AUTO) 218 K/uL (130-400); RED CELL DISTRIBUTION WIDTH 19.2 % (11.0-15.5)
[2019-03-11 09:22] LABS: CREATININE 1.4 mg/dL (0.5-1.5); POTASSIUM 3.8 mmol/L (3.5-5.1)
[2019-03-11 09:28] LABS: ALBUMIN 2.7 g/dL (3.5-5.0); BILIRUBIN,TOTAL 0.8 mg/dL (0.2-1.0); INR 1.12 (0.85-1.15); PARTIAL THROMBOPLASTIN TIME 29.6 SEC (26.3-35.5); PROTHROMBIN TIME 11.7 SEC (9.6-11.6); TOTAL PROTEIN, SERUM 7.4 g/dL (6.0-8.3)
[2019-03-11 09:53] LABS: B-TYPE NATRIURETIC PEPTIDE 330 pg/mL (0-100)
[2019-03-11] MEDS ORDERED: ASPIRIN 325 MG TABLET ONE (11:11)
[2019-03-11 11:19] LABS: APPEARANCE,URINE CLOUDY (CLEAR); BILIRUBIN,URINE NEGATIVE (NEGATIVE); COLOR,URINE YELLOW (YELLOW); GLUCOSE, URINE (UA) NEGATIVE (NEGATIVE); KETONES,URINE NEGATIVE (NEGATIVE); LEUKOCYTE ESTERASE ,URINE SMALL (NEGATIVE); NITRATE,URINE NEGATIVE (NEGATIVE); OCCULT BLOOD,URINE LARGE (NEGATIVE); PROTEIN,URINE 30 mg/dL (NEGATIVE)
[2019-03-11 11:24] LABS: BACTERIA,URINE Many /HPF (None Seen); RBC,URINE 0-1 /HPF (0-1); SQUAMOUS EPITHELIAL CELL,UR Rare /HPF (0-2)
[2019-03-11] MEDS ORDERED: HYDROCODONE/ACETAMINOPHEN 5/325 MG TAB PO PRN (11:45)
[2019-03-11] MEDS ORDERED: MORPHINE SULFATE 4 MG/1ML SYG IV PRN (11:45)
[2019-03-11] MEDS ORDERED: ONDANSETRON HCL 4 MG/2 ML VIAL IV PRN (11:45)
[2019-03-11] MEDS ORDERED: ACETAMINOPHEN 325 MG TAB PO PRN (11:45)
[2019-03-11] MEDS ORDERED: LACTULOSE 20 GM/30 ML UDCUP PO PRN (11:45)
[2019-03-11] MEDS ORDERED: NITROGLYCERIN 0.4 MG SL TAB SL PRN (11:45)
[2019-03-11] MEDS ORDERED: IPRATROPIUM/ALBUTEROL SULFATE 3 ML SOLUTION IH PRN (12:00)
[2019-03-11] MEDS ORDERED: NITROGLYCERIN 1GM/1 INCH PACKET TD SCH (12:00)
[2019-03-11] MEDS ORDERED: CEPHALEXIN 500 MG CAPSULE PO SCH (12:15)
[2019-03-11] MEDS ORDERED: CEPHALEXIN 500 MG CAPSULE ONE ×2 (15:22→22:56)
[2019-03-11] MEDS ORDERED: FAMOTIDINE 20MG TAB 20 MG TAB PO SCH (21:00)
[2019-03-11] MEDS ORDERED: ATORVASTATIN CALCIUM 20 MG TABLET PO SCH (21:00)
[2019-03-11] MEDS ORDERED: METOPROLOL TARTRATE 25 MG TAB PO SCH (21:00)
[2019-03-11] MEDS ORDERED: FUROSEMIDE 40 MG TABLET PO SCH (21:00)
[2019-03-11] MEDS ORDERED: FAMOTIDINE 20MG TAB 20 MG TAB ONE (21:25)
[2019-03-11] MEDS ORDERED: FUROSEMIDE 40 MG TABLET ONE (21:26)
[2019-03-11] MEDS ORDERED: ATORVASTATIN CALCIUM 20 MG TABLET ONE (21:26)
[2019-03-11] MEDS ORDERED: ENOXAPARIN SODIUM 40 MG/0.4 ML SYRINGE SQ ONE (21:26)
[2019-03-12 04:54] LABS: BASOPHILS % (AUTO) 1.2 % (0.0-5.0); EOSINOPHILS % (AUTO) 1.7 % (0.0-8.0); HEMATOCRIT 30.9 % (42-54); LYMPHOCYTES % (AUTO) 6.7 % (21.0-51.0); MEAN CORPUSCULAR HEMOGLOBIN 24.6 pg (27.0-33.0); MEAN CORPUSCULAR HGB CONC 31.5 g/dL (32.0-36.0); MEAN CORPUSCULAR VOLUME 78.2 fL (79-99); MONOCYTES % (AUTO) 10.1 % (3.0-13.0); NEUTROPHILS % (AUTO) 80.3 % (40.0-77.0); PLATELET COUNT (AUTO) 227 K/uL (130-400); RED BLOOD CELL COUNT(AUTO) 3.95 MIL/uL (4.50-6.20); RED CELL DISTRIBUTION WIDTH 18.7 % (11.0-15.5); WHITE BLOOD COUNT (AUTO) 7.6 K/uL (4.8-10.8)
[2019-03-12 05:01] LABS: CREATININE 1.4 mg/dL (0.5-1.5); POTASSIUM 3.8 mmol/L (3.5-5.1)
[2019-03-12] MEDS ORDERED: ISOSORBIDE MONO 30MG TAB SR PO SCH (09:00)
[2019-03-12] MEDS ORDERED: ASPIRIN 81 MG EC TAB PO SCH (09:00)
[2019-03-12] MEDS ORDERED: AMLODIPINE BESYLATE 5 MG TAB PO SCH (09:00)
[2019-03-12] MEDS ORDERED: ROPINIROLE HCL 1 MG TABLET PO SCH (09:00)
[2019-03-12] MEDS ORDERED: LEVOTHYROXINE 75 MCG TABLET PO SCH (09:00)
[2019-03-12] MEDS ORDERED: AMIODARONE HCL 200 MG TABLET PO SCH (09:00)
[2019-03-12] MEDS ORDERED: ENOXAPARIN SODIUM 40 MG/0.4 ML SYRINGE SQ SCH (09:00)
[2019-03-12] MEDS ORDERED: ASPIRIN 81MG TAB.CHEW ONE (09:45)
[2019-03-12] MEDS ORDERED: CEPHALEXIN 500 MG CAPSULE ONE (09:47)
[2019-03-12] MEDS ORDERED: FAMOTIDINE 20MG TAB 20 MG TAB ONE (09:56)
[2019-03-12] MEDS ORDERED: AMIODARONE HCL 200 MG TABLET PO ONE (09:56)
[2019-03-12] MEDS ORDERED: FUROSEMIDE 40 MG TABLET ONE (09:57)
[2019-03-12] MEDS ORDERED: ISOSORBIDE MONO 30MG TAB SR PO ONE (09:57)
[2019-03-12] MEDS ORDERED: METOPROLOL TARTRATE 25 MG TAB ONE (09:57)
[2019-03-12] MEDS ORDERED: AMLODIPINE BESYLATE 5 MG TAB PO ONE (09:57)
[2019-03-12] MEDS ORDERED: ENOXAPARIN SODIUM 40 MG/0.4 ML SYRINGE SQ ONE (10:01)
[2019-03-12 10:18] LABS: % IRON SATURATION 7.8 % (30-44)
[2019-03-12 13:50] LABS: BASOPHILS % (AUTO) 0.6 % (0.0-5.0); HEMATOCRIT 31.2 % (42-54); LYMPHOCYTES % (AUTO) 5.9 % (21.0-51.0); MEAN CORPUSCULAR HEMOGLOBIN 24.5 pg (27.0-33.0); MEAN CORPUSCULAR HGB CONC 31.3 g/dL (32.0-36.0); MEAN CORPUSCULAR VOLUME 78.2 fL (79-99); MONOCYTES % (AUTO) 11.4 % (3.0-13.0); NEUTROPHILS % (AUTO) 81.1 % (40.0-77.0); PLATELET COUNT (AUTO) 231 K/uL (130-400); RED CELL DISTRIBUTION WIDTH 18.8 % (11.0-15.5); WHITE BLOOD COUNT (AUTO) 7.5 K/uL (4.8-10.8)
--- NOTE | 2019-03-12 14:05 | NUR ---
DCP: [facility] met with pt who lives with Miranda [phone]. Pt states he is independent of ADLS, assists as needed, pt has neena caicedo in home care services. PCP is Johann Beckman and Symone andrews for rx. transports as needed and plan is home at in. CM to follow and assist as needed Addendum: 03/12/19 at 1409 by DANNY MATOS Amended: Links added.
[2019-03-12] MEDS ORDERED: COMPOUND IV MISC 1 EACH IVSOLN MISC PRN (15:45)
[2019-03-12] MEDS ORDERED: IRON SUCROSE COMPLEX 100 MG in SODIUM CHLORIDE 0.9% 50 ML IV SCH (16:00)
[2019-03-12] MEDS ORDERED: NITR0.4T50 SL (18:45)
== END 2019-03-12 20:41 | disposition home or self-care (01) ==
LOC: EDH 08:54 → INTOOBSV 08:55 → EDHIP 08:55
PROVIDERS: ADMIT Internal Medicine; ATTEND Internal Medicine
DX: I20.0 Unstable angina (principal); E03.9 Hypothyroidism, unspecified; M19.90 Unspecified osteoarthritis, unspecified site; E66.01 Morbid (severe) obesity due to excess calories; E78.5 Hyperlipidemia, unspecified; I11.0 Hypertensive heart disease with heart failure; I50.9 Heart failure, unspecified; N39.0 Urinary tract infection, site not specified; E44.1 Mild protein-calorie malnutrition; J18.9 Pneumonia, unspecified organism; Z87.891 Personal history of nicotine dependence; Z95.0 Presence of cardiac pacemaker; Z95.1 Presence of aortocoronary bypass graft; Z80.3 Family history of malignant neoplasm of breast; Z82.0 Family history of epilepsy and other diseases of the nervous system; Z82.3 Family history of stroke; Z82.49 Family history of ischemic heart disease and other diseases of the circulatory system; Z83.3 Family history of diabetes mellitus; Z79.899 Other long term (current) drug therapy
CPT/HCPCS: 36415 ×2; 71045; 80048; 80053; 81001; 82270; 82550; 83540; 83550; 83880; 84484 ×3; 85025 ×3; 85610; 85730; 87077; 87088; 87186; 93005 ×3; 94664; 99291; G0378; J1650 ×2; J1756

== ENCOUNTER → 2019-03-18 | Outpatient (CLI) | payer MEDICARE ==
[~2019-03-18] VITALS: Ht 171.4 cm; Wt 152.6 kg
[~2019-03-18] MED LIST changes: +ALBUTEROL SULFATE 0.083% 2.5 MG/3 ML INH IH ONE; +AMINOCAPROIC ACID 250 MG/ML 20 ML VIAL IV ONE; +AMIODARONE HCL 50 MG/ML 3 ML VIAL ONE; +BACITRACIN 50,000 UNIT VIAL ONE; +CEFUROXIME SODIUM 1.5 GM VIAL IVP SCH; +EPINEPHRINE 1 MG/ML AMPULE ONE; +ESMOLOL HCL 10 MG/ML 10 ML VIAL ONE; +FENTANYL CITRATE PF 50 MCG/1 ML 20ML VIAL IJ ONE; +HEPARIN SODIUM 1000UNIT/ML 10ML VIAL ONE; +IPRATROPIUM/ALBUTEROL SULFATE 3 ML SOLUTION IH ONE; +LIDOCAINE PF 2% 5ML ABBOJECT ONE; +MIDAZOLAM HCL 1 MG/ML 2ML VIAL ONE; +NITR0.4T50 SL; +NITROGLYCERIN 50 MG/D5% WATER 1 BOT ONE; +NOREPINEPHRINE BITARTRATE 1 MG/1 ML ML IV ONE; +PANT40TA25 PO; +PROPOFOL 10 MG/ML 20ML VIAL IV ONE; +PROTAMINE SULFATE 10 MG/ML 25ML VIAL IV ONE; +ROCURONIUM 10MG/1ML SYR 10 MG/ML ML ONE; +ROPI2TAB2 PO; +ROPIVACAINE 0.5% 5MG/ML 30ML IJ ONE; +SODIUM BICARB 50MEQ 50ML VIAL ONE; +SODIUM CHLORIDE 0.9% 1000ML 1,000 ML IV ONE; +SYMBICORT IH
[2019-03-18 11:40] VITALS: BP 123/56
[2019-03-18 11:51] LABS: BASOPHILS % (AUTO) 0.3 % (0.0-5.0); EOSINOPHILS % (AUTO) 0.9 % (0.0-8.0); HEMATOCRIT 31.9 % (42-54); MEAN CORPUSCULAR HEMOGLOBIN 24.4 pg (27.0-33.0); MEAN CORPUSCULAR HGB CONC 30.9 g/dL (32.0-36.0); NEUTROPHILS % (AUTO) 83.8 % (40.0-77.0); NUCLEATED RED BLOOD CELLS 0.1 % (0.0-0.19); PLATELET COUNT (AUTO) 318 K/uL (130-400); RED BLOOD CELL COUNT(AUTO) 4.04 MIL/uL (4.50-6.20); RED CELL DISTRIBUTION WIDTH 19.2 % (11.0-15.5); WHITE BLOOD COUNT (AUTO) 8.8 K/uL (4.8-10.8)
[2019-03-18 11:58] LABS: HEMOGLOBIN A1C 6.4 % (4.0-6.0)
[2019-03-18 12:03] LABS: INR 1.11 (0.85-1.15); PARTIAL THROMBOPLASTIN TIME 30.1 SEC (26.3-35.5); PROTHROMBIN TIME 11.6 SEC (9.6-11.6)
[2019-03-18 12:08] LABS: ALBUMIN 2.7 g/dL (3.5-5.0); BILIRUBIN,TOTAL 0.6 mg/dL (0.2-1.0); CREATININE 1.5 mg/dL (0.5-1.5); POTASSIUM 3.7 mmol/L (3.5-5.1); TOTAL PROTEIN, SERUM 7.8 g/dL (6.0-8.3)
--- NOTE | 2019-03-18 14:55 | NUR ---
LABS INFORMED Ti BROWN RN OF ABNORMAL PFT RESULT/ CO2 LEVEL/ H&H. PER DR. RINCON. NO ORDERS RECEIVED. PROCEED WITH PLANNED PROCEDURE.
[2019-03-19 09:15] VITALS: BP 124/56
[2019-03-19 10:23] LABS: ABG BASE EXCESS 5.8 mmol/L (-2.0-3.0); ABG OXYGEN SATURATION 94.6 % (95.0-99.0); ABG PCO2 55 mmHg (35-48)
== END | disposition home or self-care (01) ==
LOC: EDSTATUS 10:00 → DAH 10:00 → DAHIP 03-19 08:42 → UNDOADMIN 03-19 08:42 → UNDODISIN 03-19 14:38
PROVIDERS: ATTEND Thoracic Surgery (Cardiothoracic Vascular Surgery)
DX: Z01.810 Encounter for preprocedural cardiovascular examination (principal); I51.7 Cardiomegaly; J90 Pleural effusion, not elsewhere classified; J98.11 Atelectasis
CPT/HCPCS: 36415; 71046; 80053; 80061; 82435; 82803; 82947; 82948; 83036; 83605; 84132; 84295; 85018; 85025; 85610; 85730; 86850; 86900; 86901; 86922; 93005; 94060; A6260; J0171; J0282; J0697; J1644; J2001; J2250; J2704; J2720; J2795; J3010; J3490; J7030

== ENCOUNTER 2019-04-27 00:23 | Inpatient (IN) | payer MEDICARE ==
[~2019-04-27] VITALS: Ht 170.2 cm; Wt 152.9 kg
[~2019-04-27 00:23] MED LIST changes: -ALBUTEROL SULFATE 0.083% 2.5 MG/3 ML INH IH ONE; -AMINOCAPROIC ACID 250 MG/ML 20 ML VIAL IV ONE; -AMIODARONE HCL 50 MG/ML 3 ML VIAL ONE; -BACITRACIN 50,000 UNIT VIAL ONE; -BUDE10.2 IH; -CEFUROXIME SODIUM 1.5 GM VIAL IVP SCH; -EPINEPHRINE 1 MG/ML AMPULE ONE; -ESMOLOL HCL 10 MG/ML 10 ML VIAL ONE; -FENTANYL CITRATE PF 50 MCG/1 ML 20ML VIAL IJ ONE; -HEPARIN SODIUM 1000UNIT/ML 10ML VIAL ONE; -IPRATROPIUM/ALBUTEROL SULFATE 3 ML SOLUTION IH ONE; -LIDOCAINE PF 2% 5ML ABBOJECT ONE; -METO25 PO; -MIDAZOLAM HCL 1 MG/ML 2ML VIAL ONE; -NITROGLYCERIN 50 MG/D5% WATER 1 BOT ONE; -NOREPINEPHRINE BITARTRATE 1 MG/1 ML ML IV ONE; -PROPOFOL 10 MG/ML 20ML VIAL IV ONE; -PROTAMINE SULFATE 10 MG/ML 25ML VIAL IV ONE; -ROCURONIUM 10MG/1ML SYR 10 MG/ML ML ONE; -ROPI2TAB29 PO; -ROPIVACAINE 0.5% 5MG/ML 30ML IJ ONE; -SODIUM BICARB 50MEQ 50ML VIAL ONE; -SODIUM CHLORIDE 0.9% 1000ML 1,000 ML IV ONE
[2019-04-27 00:42] LABS: EOSINOPHILS % (AUTO) 2.1 % (0.0-8.0); MEAN CORPUSCULAR HEMOGLOBIN 25.1 pg (27.0-33.0); MEAN CORPUSCULAR HGB CONC 32.2 g/dL (32.0-36.0); MEAN CORPUSCULAR VOLUME 77.9 fL (79-99); MONOCYTES % (AUTO) 8.8 % (3.0-13.0); NEUTROPHILS % (AUTO) 72.1 % (40.0-77.0); PLATELET COUNT (AUTO) 177 K/uL (130-400); RED BLOOD CELL COUNT(AUTO) 4.11 MIL/uL (4.50-6.20); RED CELL DISTRIBUTION WIDTH 19.4 % (11.0-15.5); WHITE BLOOD COUNT (AUTO) 8.8 K/uL (4.8-10.8)
[2019-04-27 00:51] LABS: CREATININE 1.7 mg/dL (0.5-1.5); POTASSIUM 3.6 mmol/L (3.5-5.1)
[2019-04-27 00:55] LABS: ALBUMIN 2.9 g/dL (3.5-5.0); BILIRUBIN,TOTAL 0.4 mg/dL (0.2-1.0); MAGNESIUM 3.2 mg/dL (1.80-2.40); TOTAL PROTEIN, SERUM 7.4 g/dL (6.0-8.3)
[2019-04-27 00:56] LABS: INR 1.05 (0.85-1.15); PARTIAL THROMBOPLASTIN TIME 28.5 SEC (26.3-35.5)
[2019-04-27 01:00] LABS: B-TYPE NATRIURETIC PEPTIDE 226 pg/mL (0-100)
[2019-04-27] MEDS ORDERED: ACETAMINOPHEN 325 MG TAB PO PRN ×2 (03:15)
[2019-04-27] MEDS ORDERED: MORPHINE SULFATE 4 MG/1ML SYG IV PRN (03:15)
[2019-04-27] MEDS ORDERED: HYDRALAZINE HCL 20 MG/ML VIAL IV PRN (03:15)
[2019-04-27] MEDS ORDERED: ONDANSETRON HCL 4 MG/2 ML VIAL IV PRN (03:15)
[2019-04-27 03:48] LABS: APPEARANCE,URINE CLEAR (CLEAR); BILIRUBIN,URINE Negative (NEGATIVE); COLOR,URINE Yellow (YELLOW); GLUCOSE, URINE (UA) Negative (NEGATIVE); KETONES,URINE Negative (NEGATIVE); LEUKOCYTE ESTERASE ,URINE Negative (NEGATIVE); NITRATE,URINE Negative (NEGATIVE); OCCULT BLOOD,URINE Negative (NEGATIVE); PH,URINE 5.5 (5.0-8.0); PROTEIN,URINE Negative (NEGATIVE)
[2019-04-27] MEDS: FUROSEMIDE 10 MG/ML 2ML VIAL IV SCH ×2 (07:30→21:00)
[2019-04-27 07:52] LABS: HEMOGLOBIN A1C 6.2 % (4.0-6.0)
[2019-04-27 07:52] LABS: CHOLESTEROL 111 mg/dL (<200); HDL CHOLESTEROL 42 mg/dL (29-71); LDL DIRECT 61 mg/dL (0-99); TRIGLYCERIDES 45 mg/dL (30-200)
[2019-04-27] MEDS ORDERED: ASPIRIN 81MG TAB.CHEW ONE (08:59)
[2019-04-27] MEDS ORDERED: ENOXAPARIN SODIUM 30 MG/0.3 ML SQ ONE (09:00)
[2019-04-27] MEDS: ASPIRIN 325 MG TABLET PO SCH (09:00)
[2019-04-27] MEDS ORDERED: FAMOTIDINE/PF 20 MG/2 ML VIAL IV ONE (09:00)
[2019-04-27] MEDS ORDERED: FUROSEMIDE 10 MG/ML 2ML VIAL ONE (09:00)
[2019-04-27] MEDS ORDERED: METOPROLOL TARTRATE 25 MG TAB ONE (09:00)
[2019-04-27] MEDS: ENOXAPARIN SODIUM 30 MG/0.3 ML SQ SCH (09:00)
[2019-04-27] MEDS: FAMOTIDINE/PF 20 MG/2 ML VIAL IV SCH ×2 (09:00→22:25)
[2019-04-27] MEDS: METOPROLOL TARTRATE 25 MG TAB PO SCH ×2 (09:00→21:00)
[2019-04-27] MEDS: ISOSORBIDE MONO 30MG TAB SR PO SCH (09:45)
[2019-04-27] MEDS: AMLODIPINE BESYLATE 5 MG TAB PO SCH (09:45)
[2019-04-27] MEDS ORDERED: ISOSORBIDE MONO 30MG TAB SR PO ONE (10:09)
[2019-04-27] MEDS ORDERED: AMLODIPINE BESYLATE 5 MG TAB ONE (10:17)
[2019-04-27 14:08] VITALS: BP 129/63
[2019-04-27] MEDS ORDERED: METO25TA6 PO (15:55)
[2019-04-27] MEDS ORDERED: ERGO500014 PO (15:55)
[2019-04-27 16:00] VITALS: BP 131/57
[2019-04-27 19:50] LABS: CREATINE KINASE, TOTAL 79 U/L (21-232); MYOGLOBIN 84 ng/mL (10-92); TROPONIN I < 0.04 ng/mL (0.00-0.06)
[2019-04-27 20:00] VITALS: BP 103/46
[2019-04-27] MEDS: ATORVASTATIN CALCIUM 20 MG TABLET PO SCH (22:25)
[2019-04-27] MEDS: ROPINIROLE HCL 1 MG TABLET PO SCH (22:25)
[2019-04-28] VITALS (15 sets, daily range): BP systolic 101–150; BP diastolic 48–79
[2019-04-28 06:26] LABS: BASOPHILS % (AUTO) 0.7 % (0.0-5.0); EOSINOPHILS % (AUTO) 1.6 % (0.0-8.0); LYMPHOCYTES % (AUTO) 17.6 % (21.0-51.0); MEAN CORPUSCULAR HEMOGLOBIN 24.8 pg (27.0-33.0); MEAN CORPUSCULAR HGB CONC 31.5 g/dL (32.0-36.0); MEAN CORPUSCULAR VOLUME 78.6 fL (79-99); NEUTROPHILS % (AUTO) 72.1 % (40.0-77.0); NUCLEATED RED BLOOD CELLS 0.1 % (0.0-0.19); PLATELET COUNT (AUTO) 179 K/uL (130-400); RED BLOOD CELL COUNT(AUTO) 4.07 MIL/uL (4.50-6.20); RED CELL DISTRIBUTION WIDTH 19.8 % (11.0-15.5); WHITE BLOOD COUNT (AUTO) 6.1 K/uL (4.8-10.8)
[2019-04-28] MEDS: LEVOTHYROXINE 75 MCG TABLET PO SCH (06:27)
[2019-04-28 06:50] LABS: CREATININE 1.5 mg/dL (0.5-1.5); POTASSIUM 3.4 mmol/L (3.5-5.1)
[2019-04-28 07:06] LABS: % IRON SATURATION 13.9 % (30-44)
[2019-04-28] MEDS: METOPROLOL TARTRATE 25 MG TAB PO SCH ×2 (09:00→21:14)
[2019-04-28] MEDS: ENOXAPARIN SODIUM 30 MG/0.3 ML SQ SCH (09:00)
[2019-04-28] MEDS: ASPIRIN 325 MG TABLET PO SCH (09:00)
[2019-04-28] MEDS: ISOSORBIDE MONO 30MG TAB SR PO SCH (09:57)
[2019-04-28] MEDS: FUROSEMIDE 10 MG/ML 2ML VIAL IV SCH ×2 (09:58→21:14)
[2019-04-28] MEDS: FAMOTIDINE/PF 20 MG/2 ML VIAL IV SCH (09:59)
[2019-04-28] MEDS: AMLODIPINE BESYLATE 5 MG TAB PO SCH (10:06)
--- NOTE | 2019-04-28 12:55 | NUR ---
INITIAL MET W PATIENT WITH BROTHER AT BEDSIDE, CURRENTLY WAITING FOR LHC/STENT PT LIVES W SPOUSE KRISTINE WHO WILL SUPPLY TRANPORT HOME. PT USES A CANE AND A ROLLING WALKER, HAS AN ELELCTRIC SCOOTER BUT HAS NOT USES YET- NEEDS RAMP AT HOUSE. HAS O2, NEB, CPAP, AND HANDICAPPED ASSIST RESTROOM, PT ADMITS DOES NOT RAMIREZ MUCH FOR HIMSELF ANYMORE. SUPPORTIVE FAMILY AND SEES DR. Kiarra CHILDRESS, LAST APPT ONE WEEK AGO. DCP IS HOME Addendum: 04/28/19 at 1848 by MERLY RAGLAND RN CM Amended: Links added.
[2019-04-28] MEDS ORDERED: LIDOCAINE HCL 2% 20ML ONE (17:27)
[2019-04-28] MEDS ORDERED: NITROGLYCERIN 5 MG/ML 10 ML VIAL IV ONE (17:27)
[2019-04-28] MEDS ORDERED: IOHEXOL 350 MG/ML 100ML INFUS..BTL IV ONE (17:27)
[2019-04-28] MEDS ORDERED: SODIUM BICARB 50MEQ 50ML VIAL ONE (17:27)
[2019-04-28] MEDS ORDERED: HEPARIN SODIUM 1000UNIT/ML 10ML VIAL ONE (17:27)
[2019-04-28] MEDS ORDERED: NICARDIPINE HCL 25 MG/10 ML ML IV ONE (17:28)
[2019-04-28] MEDS ORDERED: IOHEXOL-350 50ML VIAL IV ONE (18:22)
[2019-04-28] MEDS ORDERED: ASPIRIN 325MG EC TAB 325 MG TABLET.DR PO ONE (18:39)
[2019-04-28] MEDS ORDERED: CLOPIDOGREL BISULFATE 300 MG TAB ONE (18:39)
[2019-04-28] MEDS ORDERED: SODIUM CHLORIDE 0.9% 1000ML 1,000 ML IV SCH (18:41)
[2019-04-28] MEDS ORDERED: CLOP75TA14 PO (18:45)
--- NOTE | 2019-04-28 20:00 | NUR ---
PATIENT ARRIVED ON UNIT. R RADIAL BAND IN PLACE. DENIES PARESTHESIA, PAIN, OR NUMBNESS TO R EXTREMITY/ HAND. FINGERS COOL TO TOUCH, NAIL BED 2 SEC CAP REFIL. PULSE OX IN PLACE 02 AT 97%. DENIES PAIN TO CHEST OR SOB. WILL RELEASE SOME PRESSURE TO RADIAL BAND IN 120 MIN
[2019-04-28] MEDS: ROPINIROLE HCL 1 MG TABLET PO SCH (21:14)
[2019-04-28] MEDS: ATORVASTATIN CALCIUM 20 MG TABLET PO SCH (21:14)
--- NOTE | 2019-04-28 22:15 | NUR ---
2ml Released from radial band. No s/s of bleeding. Hand warm. Nail beds pink <2 sec refill.
[2019-04-29] VITALS: BP 140/74
[2019-04-29 00:36] VITALS: BP 128/62
[2019-04-29 04:00] VITALS: BP 127/60
[2019-04-29 04:37] LABS: HEMATOCRIT 31.5 % (42-54); MEAN CORPUSCULAR HEMOGLOBIN 25.2 pg (27.0-33.0); MEAN CORPUSCULAR HGB CONC 31.7 g/dL (32.0-36.0); MEAN CORPUSCULAR VOLUME 79.3 fL (79-99); PLATELET COUNT (AUTO) 159 K/uL (130-400); RED BLOOD CELL COUNT(AUTO) 3.97 MIL/uL (4.50-6.20); RED CELL DISTRIBUTION WIDTH 19.8 % (11.0-15.5); WHITE BLOOD COUNT (AUTO) 6.6 K/uL (4.8-10.8)
[2019-04-29 04:45] LABS: CREATININE 1.4 mg/dL (0.5-1.5); POTASSIUM 3.5 mmol/L (3.5-5.1)
--- NOTE | 2019-04-29 06:02 | NUR ---
Hospitalist paged for electrolyte replacement. No call back.
[2019-04-29] MEDS ORDERED: POTASSIUM CHLORIDE 20MEQ/100ML 100 ML IV PRN ×2 (06:15)
[2019-04-29] MEDS ORDERED: POTASSIUM CHLORIDE 10% ELIXIR 20 MEQ/15 ML UDCUP PO PRN (06:15)
[2019-04-29] MEDS ORDERED: LIDOCAINE HCL-MPF 1% 2ML VIAL IV PRN ×2 (06:15)
[2019-04-29] MEDS ORDERED: POTASSIUM CHLORIDE 20 MEQ ERTAB PO PRN (06:15)
[2019-04-29] MEDS: LEVOTHYROXINE 75 MCG TABLET PO SCH (06:27)
[2019-04-29] MEDS: FUROSEMIDE 10 MG/ML 2ML VIAL IV SCH (06:27)
[2019-04-29 07:00] VITALS: BP 147/68
[2019-04-29] MEDS ORDERED: ASPIRIN 81MG TAB.CHEW ONE (07:51)
[2019-04-29] MEDS: ISOSORBIDE MONO 30MG TAB SR PO SCH (08:18)
[2019-04-29] MEDS: AMLODIPINE BESYLATE 5 MG TAB PO SCH (08:18)
[2019-04-29] MEDS: METOPROLOL TARTRATE 25 MG TAB PO SCH (08:18)
[2019-04-29] MEDS: ASPIRIN 325 MG TABLET PO SCH (08:21)
[2019-04-29] MEDS ORDERED: PANTOPRAZOLE SODIUM 40 MG TABLET.DR PO SCH (09:00)
[2019-04-29] MEDS ORDERED: CLOPIDOGREL BISULFATE 75 MG TAB PO SCH (09:00)
[2019-04-29 11:00] VITALS: BP 124/58
--- NOTE | 2019-04-29 11:00 | NUR ---
1038 had IM Letter signed by patient,faxed im letter to [phone] and placed in chart under consent tab
--- NOTE | 2019-04-29 13:10 | NUR ---
GIVEN DISMISSAL INSTRUCTIONS, NO SCRIPTS. VERBALIZED UNDERSTANDING. REMOVED TELE PACK. REMOVED SALINE LOCK FROM RIGHT, IV SITE WITHOUT REDNESS NOTED. TAKEN TO PRIVATE CAR ALONG WITH PERSONAL BELONGINGS VIA WHEELCHAIR BY JAMIL KRAMER.
== END 2019-04-29 13:18 | disposition home or self-care (01) | DRG 246 ==
LOC: EDH 00:23 → EDHIP 03:13 → OBSVTOIN 03:13 → 3AH 14:05 → 2AH 04-28 19:00
PROVIDERS: ADMIT Internal Medicine; ATTEND Internal Medicine
PROC: B2111ZZ Fluoroscopy of Multiple Coronary Arteries using Low Osmolar Contrast (ICD-10-PCS; principal; 2019-04-28)
PROC: 027035Z Dilation of Coronary Artery, One Artery with Two Drug-eluting Intraluminal Devices, Percutaneous Approach (ICD-10-PCS; 2019-04-28)
PROC: B2131ZZ Fluoroscopy of Multiple Coronary Artery Bypass Grafts using Low Osmolar Contrast (ICD-10-PCS; 2019-04-28)
PROC: 4A023N7 Measurement of Cardiac Sampling and Pressure, Left Heart, Percutaneous Approach (ICD-10-PCS; 2019-04-28)
DX: I25.110 Atherosclerotic heart disease of native coronary artery with unstable angina pectoris (principal); I50.31 Acute diastolic (congestive) heart failure; I13.0 Hypertensive heart and chronic kidney disease with heart failure and stage 1 through stage 4 chronic kidney disease, or unspecified chronic kidney disease; Z68.43 Body mass index [BMI] 50.0-59.9, adult; J96.10 Chronic respiratory failure, unspecified whether with hypoxia or hypercapnia; I49.9 Cardiac arrhythmia, unspecified; I35.0 Nonrheumatic aortic (valve) stenosis; J44.9 Chronic obstructive pulmonary disease, unspecified; N18.3 Chronic kidney disease, stage 3 (moderate); E11.22 Type 2 diabetes mellitus with diabetic chronic kidney disease; E66.01 Morbid (severe) obesity due to excess calories; E55.9 Vitamin D deficiency, unspecified; K44.9 Diaphragmatic hernia without obstruction or gangrene; E03.9 Hypothyroidism, unspecified; E78.5 Hyperlipidemia, unspecified; G25.81 Restless legs syndrome; I45.10 Unspecified right bundle-branch block; Z96.651 Presence of right artificial knee joint; L40.9 Psoriasis, unspecified; Z80.3 Family history of malignant neoplasm of breast; Z82.0 Family history of epilepsy and other diseases of the nervous system; Z82.3 Family history of stroke; Z82.49 Family history of ischemic heart disease and other diseases of the circulatory system; Z82.5 Family history of asthma and other chronic lower respiratory diseases; Z83.3 Family history of diabetes mellitus; Z87.891 Personal history of nicotine dependence; Z95.0 Presence of cardiac pacemaker; Z95.1 Presence of aortocoronary bypass graft; Z90.49 Acquired absence of other specified parts of digestive tract
CPT/HCPCS: 36415; 71045; 80048; 80053; 80061; 81003; 82550; 83036; 83540; 83550; 83735; 83874; 83880; 84484; 85025; 85027; 85347; 85610; 85730; 93005; 93454; 93458; 94760; A4606; C1769; C1887; C9600; G0378; J1644; J1650; J1940; J3490; Q9967

== ENCOUNTER → 2019-05-27 | Outpatient (CLI) | payer MEDICARE ==
[~2019-05-27] MED LIST changes: +CLOP75TA14 PO; +ERGO500014 PO; +IOHEXOL 350 MG/ML 100ML INFUS..BTL IV ONE; +METO25TA6 PO; -NITR0.4T50 SL
== END | disposition home or self-care (01) ==
LOC: RAH 07:05
PROVIDERS: ATTEND Internal Medicine Cardiovascular Disease
DX: J90 Pleural effusion, not elsewhere classified (principal); I73.9 Peripheral vascular disease, unspecified; E78.5 Hyperlipidemia, unspecified; J98.11 Atelectasis; I11.9 Hypertensive heart disease without heart failure
CPT/HCPCS: 74174; 75574; Q9967

== ENCOUNTER 2019-11-14 03:01 | Emergency (ER) | payer MEDICARE, OTHER ==
[~2019-11-14 03:01] MED LIST changes: +AMIO200T44 PO; -AMIO200T5 PO; -AMLO5TAB9 PO; +FURO40TA5 PO; -FURO40TA7 PO; -IOHEXOL 350 MG/ML 100ML INFUS..BTL IV ONE; -ROPI2TAB2 PO; +ROPI2TAB7 PO
== END 2019-11-14 04:02 | disposition home or self-care (01) ==
LOC: EDH 03:01
DX: R42 Dizziness and giddiness (principal); T46.4X5A Adverse effect of angiotensin-converting-enzyme inhibitors, initial encounter; I11.0 Hypertensive heart disease with heart failure; I50.9 Heart failure, unspecified; J44.9 Chronic obstructive pulmonary disease, unspecified; E11.9 Type 2 diabetes mellitus without complications; E03.9 Hypothyroidism, unspecified; E78.5 Hyperlipidemia, unspecified; I25.10 Atherosclerotic heart disease of native coronary artery without angina pectoris; Z95.0 Presence of cardiac pacemaker; Z90.49 Acquired absence of other specified parts of digestive tract; Z98.890 Other specified postprocedural states; Y92.89 Other specified places as the place of occurrence of the external cause
CPT/HCPCS: 99281

== ENCOUNTER → 2020-04-05 | Outpatient (CLI) | payer MEDICARE ==
[~2020-04-05] MED LIST changes: -PANT40TA25 PO; +PANT40TA54 PO
== END | disposition home or self-care (01) ==
LOC: SHCH 13:11
PROVIDERS: ATTEND Internal Medicine Cardiovascular Disease
DX: I08.1 Rheumatic disorders of both mitral and tricuspid valves (principal); I65.23 Occlusion and stenosis of bilateral carotid arteries; I10 Essential (primary) hypertension
CPT/HCPCS: 93306; 93880

== ENCOUNTER 2020-05-30 19:36 | Emergency (ER) | payer MEDICARE | END 2020-05-30 21:26 | disposition home or self-care (01) | LOC: EDH 19:36 | DX: M79.81 Nontraumatic hematoma of soft tissue (principal); J44.9 Chronic obstructive pulmonary disease, unspecified; E11.9 Type 2 diabetes mellitus without complications; I11.0 Hypertensive heart disease with heart failure; I50.9 Heart failure, unspecified; E78.5 Hyperlipidemia, unspecified; E03.9 Hypothyroidism, unspecified; Z98.890 Other specified postprocedural states; Z95.0 Presence of cardiac pacemaker; Z87.891 Personal history of nicotine dependence; Z95.1 Presence of aortocoronary bypass graft | CPT/HCPCS: 99281 ==

== ENCOUNTER 2020-12-06 13:21 | Observation (INO) | payer MEDICARE ==
[~2020-12-06] VITALS: Ht 170.2 cm; Wt 166.7 kg
[~2020-12-06 13:21] MED LIST changes: -ISOS30TA6 PO; +ISOS30TA92 PO
[2020-12-06 13:30] VITALS: BP 116/39
[2020-12-06] MEDS ORDERED: ASPIRIN 325MG EC TAB PO ONE (13:45)
[2020-12-06] MEDS ORDERED: LIDOCAINE HCL 2% VISCOUS 15 ML UDCUP PO ONE (13:45)
[2020-12-06] MEDS ORDERED: MAG/ALUM/SIMETH 30 ML UDCUP PO ONE (13:45)
[2020-12-06] MEDS ORDERED: FAMOTIDINE 20MG TAB PO ONE (13:45)
[2020-12-06 14:02] LABS: BASOPHILS % (AUTO) 0.8 % (0.0-5.0); EOSINOPHILS % (AUTO) 1.5 % (0.0-8.0); HEMATOCRIT 34.7 % (42-54); MEAN CORPUSCULAR HEMOGLOBIN 26.5 pg (27.0-33.0); MEAN CORPUSCULAR HGB CONC 30.3 g/dL (32.0-36.0); MEAN CORPUSCULAR VOLUME 87.6 fL (79-99); MONOCYTES % (AUTO) 8.4 % (3.0-13.0); NEUTROPHILS % (AUTO) 78.8 % (40.0-77.0); PLATELET COUNT (AUTO) 232 K/uL (130-400); RED BLOOD CELL COUNT(AUTO) 3.96 MIL/uL (4.50-6.20); RED CELL DISTRIBUTION WIDTH 15.9 % (11.0-15.5); WHITE BLOOD COUNT (AUTO) 8.6 K/uL (4.8-10.8)
[2020-12-06 14:16] LABS: CREATININE 1.8 mg/dL (0.5-1.5); POTASSIUM 3.9 mmol/L (3.5-5.1)
[2020-12-06 14:20] LABS: ALBUMIN 2.9 g/dL (3.5-5.0); BILIRUBIN,TOTAL 0.5 mg/dL (0.2-1.0); CRP QUANTITATIVE 36.5 mg/L (0.00-9.0); TOTAL PROTEIN, SERUM 7.7 g/dL (6.0-8.3)
[2020-12-06] MEDS: 0.9%NACL 1000ML 1,000 ML IV SCH ×3 (15:52→17:28)
[2020-12-06] MEDS ORDERED: IOHEXOL 350 MG/ML 100ML INFUS..BTL IV ONE (16:43)
[2020-12-06] MEDS ORDERED: FUROSEMIDE 40MG VIAL IV ONE (17:15)
[2020-12-06 18:35] VITALS: BP 118/45
[2020-12-06 19:16] LABS: THYROID STIMULATING HORMONE 1.62 uIU/mL (0.36-3.74)
[2020-12-06 20:29] VITALS: BP 133/36
[2020-12-06] MEDS: METOPROLOL TARTRATE 25 MG TAB PO SCH (20:40)
[2020-12-06] MEDS: ATORVASTATIN 10 MG TABLET PO SCH (20:41)
[2020-12-06] MEDS: ROPINIROLE HCL 1 MG TABLET PO SCH (21:00)
[2020-12-06 21:33] LABS: HEMOGLOBIN A1C 7.7 % (4.0-6.0)
[2020-12-07] VITALS (7 sets, daily range): BP systolic 103–164; BP diastolic 32–77
[2020-12-07 05:53] LABS: BASOPHILS % (AUTO) 0.5 % (0.0-5.0); EOSINOPHILS % (AUTO) 2.1 % (0.0-8.0); HEMATOCRIT 33.6 % (42-54); LYMPHOCYTES % (AUTO) 10.4 % (21.0-51.0); MEAN CORPUSCULAR HEMOGLOBIN 26.2 pg (27.0-33.0); MEAN CORPUSCULAR HGB CONC 29.8 g/dL (32.0-36.0); NEUTROPHILS % (AUTO) 76.7 % (40.0-77.0); PLATELET COUNT (AUTO) 211 K/uL (130-400); RED BLOOD CELL COUNT(AUTO) 3.82 MIL/uL (4.50-6.20); RED CELL DISTRIBUTION WIDTH 15.9 % (11.0-15.5); WHITE BLOOD COUNT (AUTO) 7.7 K/uL (4.8-10.8)
[2020-12-07 06:00] LABS: CREATININE 1.7 mg/dL (0.5-1.5); POTASSIUM 3.8 mmol/L (3.5-5.1)
[2020-12-07 06:26] LABS: CREATININE,URINE RANDOM 122 mg/dL (30-135)
[2020-12-07 06:37] LABS: APPEARANCE,URINE Clear (CLEAR); BILIRUBIN,URINE Negative (NEGATIVE); COLOR,URINE Yellow (YELLOW); GLUCOSE, URINE (UA) Negative (NEGATIVE); KETONES,URINE Negative (NEGATIVE); LEUKOCYTE ESTERASE ,URINE Negative (NEGATIVE); NITRATE,URINE Negative (NEGATIVE); OCCULT BLOOD,URINE Negative (NEGATIVE); PROTEIN,URINE Trace mg/dL (NEGATIVE)
[2020-12-07 06:45] LABS: BACTERIA,URINE Rare /HPF (None Seen); RBC,URINE 0-1 /HPF (0-1); SQUAMOUS EPITHELIAL CELL,UR Few /HPF (0-2); WBC,URINE 0-1 /HPF (0-1)
[2020-12-07] MEDS: ASPIRIN 81 MG EC TAB PO SCH (08:26)
[2020-12-07] MEDS: METOPROLOL TARTRATE 25 MG TAB PO SCH ×2 (08:26→20:10)
[2020-12-07] MEDS: PANTOPRAZOLE 40 MG TAB DR PO SCH (08:26)
[2020-12-07] MEDS: ISOSORBIDE MONO 30MG SR TAB PO SCH (08:26)
[2020-12-07] MEDS: AMIODARONE 200 MG TABLET PO SCH (08:26)
[2020-12-07] MEDS: CLOPIDOGREL 75MG TAB PO SCH (08:26)
[2020-12-07] MEDS ORDERED: FUROSEMIDE 40 MG TABLET PO SCH ×2 (12:03→21:00)
[2020-12-07] MEDS ORDERED: FURO80TA3 PO (12:17)
[2020-12-07] MEDS ORDERED: LEVO100T4 PO (12:17)
[2020-12-07] MEDS ORDERED: PERFLUTREN PROTEIN-A MICROSPHR 0.22 MG/ML VIAL IV ONE (14:00)
[2020-12-07] MEDS: FUROSEMIDE 80 MG TABLET PO SCH (16:10)
[2020-12-07] MEDS: ATORVASTATIN 10 MG TABLET PO SCH (20:10)
[2020-12-07] MEDS: ROPINIROLE HCL 1 MG TABLET PO SCH (20:10)
[2020-12-07] MEDS: SYMBICORT IH SCH (21:00)
[2020-12-08 04:12] VITALS: BP 126/31
[2020-12-08 04:51] LABS: BASOPHILS % (AUTO) 0.4 % (0.0-5.0); EOSINOPHILS % (AUTO) 2.4 % (0.0-8.0); HEMATOCRIT 34.1 % (42-54); MEAN CORPUSCULAR HEMOGLOBIN 25.5 pg (27.0-33.0); MEAN CORPUSCULAR HGB CONC 29.3 g/dL (32.0-36.0); MONOCYTES % (AUTO) 8.4 % (3.0-13.0); NEUTROPHILS % (AUTO) 75.5 % (40.0-77.0); PLATELET COUNT (AUTO) 216 K/uL (130-400); RED BLOOD CELL COUNT(AUTO) 3.92 MIL/uL (4.50-6.20); RED CELL DISTRIBUTION WIDTH 15.7 % (11.0-15.5); WHITE BLOOD COUNT (AUTO) 6.9 K/uL (4.8-10.8)
[2020-12-08 05:08] LABS: ALBUMIN 2.6 g/dL (3.5-5.0); BILIRUBIN,TOTAL 0.4 mg/dL (0.2-1.0); CREATININE 1.8 mg/dL (0.5-1.5); POTASSIUM 3.9 mmol/L (3.5-5.1)
[2020-12-08] MEDS ORDERED: LEVOTHYROXINE 75 MCG TABLET PO SCH (06:30)
[2020-12-08] MEDS ORDERED: LEVOTHYROXINE 100 MCG TABLET PO SCH (06:30)
[2020-12-08 08:00] VITALS: BP 130/37
[2020-12-08] MEDS: METOPROLOL TARTRATE 25 MG TAB PO SCH (08:25)
[2020-12-08] MEDS ORDERED: FUROSEMIDE 40 MG TABLET ONE (08:27)
[2020-12-08] MEDS: ASPIRIN 81 MG EC TAB PO SCH (08:29)
[2020-12-08] MEDS: AMIODARONE 200 MG TABLET PO SCH (08:29)
[2020-12-08] MEDS: ISOSORBIDE MONO 30MG SR TAB PO SCH (08:29)
[2020-12-08] MEDS: PANTOPRAZOLE 40 MG TAB DR PO SCH (08:30)
[2020-12-08] MEDS ORDERED: POTA20TA12 PO (08:38)
[2020-12-08] MEDS: SYMBICORT IH SCH (08:39)
[2020-12-08] MEDS: FUROSEMIDE 80 MG TABLET PO SCH (09:00)
[2020-12-08 12:00] VITALS: BP 134/52
[2020-12-08] MEDS ORDERED: FURO80TA3 PO (12:07)
[2020-12-08] MEDS ORDERED: LEVO100T4 PO (12:07)
[2020-12-08] MEDS ORDERED: CLOP75TA14 PO (12:07)
[2020-12-08] MEDS: CLOPIDOGREL 75MG TAB PO SCH (14:47)
== END 2020-12-08 15:21 | disposition home or self-care (01) ==
LOC: EDH 13:21 → EDHIP 18:37 → 2DH 12-07 01:10 → 4DH 12-07 18:51
PROVIDERS: ADMIT Internal Medicine; ATTEND Internal Medicine
DX: G45.9 Transient cerebral ischemic attack, unspecified (principal); I11.0 Hypertensive heart disease with heart failure; I50.32 Chronic diastolic (congestive) heart failure; E66.01 Morbid (severe) obesity due to excess calories; E11.9 Type 2 diabetes mellitus without complications; E78.5 Hyperlipidemia, unspecified; G47.33 Obstructive sleep apnea (adult) (pediatric); I25.10 Atherosclerotic heart disease of native coronary artery without angina pectoris; I35.0 Nonrheumatic aortic (valve) stenosis; I48.92 Unspecified atrial flutter; J44.9 Chronic obstructive pulmonary disease, unspecified; J84.10 Pulmonary fibrosis, unspecified; R06.02 Shortness of breath; R07.9 Chest pain, unspecified; Z79.02 Long term (current) use of antithrombotics/antiplatelets; Z79.899 Other long term (current) drug therapy; R20.0 Anesthesia of skin; M79.89 Other specified soft tissue disorders; Z95.0 Presence of cardiac pacemaker; Z95.1 Presence of aortocoronary bypass graft; Z87.891 Personal history of nicotine dependence; Z90.49 Acquired absence of other specified parts of digestive tract; Z95.2 Presence of prosthetic heart valve; Z96.651 Presence of right artificial knee joint; Z79.01 Long term (current) use of anticoagulants; Z82.49 Family history of ischemic heart disease and other diseases of the circulatory system
CPT/HCPCS: 36415 ×3; 70450; 70496; 70498; 71045 ×2; 71250; 73030; 80048; 80053 ×2; 80061; 81001; 82570; 83036; 83690; 83880; 84443; 84484 ×3; 84540; 85025 ×3; 86140; 92522; 92610; 93005; 93970; 96361; 96374; 97161; 99285; C8929; G0378 ×43; G8978; G8979; G8980; G8981; G8982; G8983; J1940; Q9956; Q9967

== ENCOUNTER 2021-03-02 08:51 | Inpatient (IN) | payer MEDICARE, OTHER ==
[~2021-03-02] VITALS: Ht 170.2 cm; Wt 159.3 kg
[~2021-03-02 08:51] MED LIST changes: -FURO40TA5 PO; +FURO80TA3 PO; +LEVO100T4 PO; -LEVO75TA10 PO; +POTA20TA12 PO
[2021-03-02 09:30] VITALS: BP 132/54
[2021-03-02] MEDS ORDERED: ZOSYN 3.375GM+NS 50ML 3.38 GM in 0.9%NACL 50ML 50 ML IV SCH ×2 (09:30→10:00)
[2021-03-02 09:51] LABS: BASOPHILS % (AUTO) 0.5 % (0.0-5.0); EOSINOPHILS % (AUTO) 1.8 % (0.0-8.0); HEMATOCRIT 39.4 % (42-54); LYMPHOCYTES % (AUTO) 9.4 % (21.0-51.0); MEAN CORPUSCULAR HEMOGLOBIN 26.1 pg (27.0-33.0); MEAN CORPUSCULAR HGB CONC 28.9 g/dL (32.0-36.0); MEAN CORPUSCULAR VOLUME 90.2 fL (79-99); MONOCYTES % (AUTO) 9.1 % (3.0-13.0); NEUTROPHILS % (AUTO) 78.8 % (40.0-77.0); PLATELET COUNT (AUTO) 241 K/uL (130-400); RED BLOOD CELL COUNT(AUTO) 4.37 MIL/uL (4.50-6.20); WHITE BLOOD COUNT (AUTO) 7.7 K/uL (4.8-10.8)
[2021-03-02 10:00] VITALS: BP 120/57
[2021-03-02] MEDS ORDERED: ZOSYN 3.375GM+NS 50ML 50 ML IV SCH ×2 (10:00→21:00)
[2021-03-02 10:07] LABS: APPEARANCE,URINE Clear (CLEAR); BILIRUBIN,URINE Negative (NEGATIVE); COLOR,URINE Yellow (YELLOW); GLUCOSE, URINE (UA) Negative (NEGATIVE); KETONES,URINE Negative (NEGATIVE); LEUKOCYTE ESTERASE ,URINE Negative (NEGATIVE); NITRATE,URINE Negative (NEGATIVE); OCCULT BLOOD,URINE Negative (NEGATIVE); PH,URINE 7.5 (5.0-8.0); PROTEIN,URINE Negative (NEGATIVE)
[2021-03-02] MEDS ORDERED: 0.9%NACL 50ML 50 ML IV ONE (10:10)
[2021-03-02 10:11] LABS: B-TYPE NATRIURETIC PEPTIDE 280 pg/mL (0-100)
[2021-03-02 10:13] LABS: ALBUMIN 3.1 g/dL (3.5-5.0); BILIRUBIN,TOTAL 0.6 mg/dL (0.2-1.0)
[2021-03-02] MEDS ORDERED: FUROSEMIDE 40MG VIAL IV SCH (12:30)
[2021-03-02] MEDS ORDERED: MORPHINE 2 MG SYG IV PRN (15:00)
[2021-03-02] MEDS ORDERED: ACETAMINOPHEN 325 MG TAB PO PRN ×2 (15:00)
[2021-03-02] MEDS ORDERED: ONDANSETRON 4MG INJ IV PRN (15:00)
[2021-03-02] MEDS ORDERED: NITROGLYCERIN 0.4 MG SL TAB SL PRN (15:00)
[2021-03-02 15:21] LABS: CRP QUANTITATIVE 28.4 mg/L (0.00-9.0)
[2021-03-02] MEDS: FUROSEMIDE 80 MG TABLET PO SCH (16:19)
[2021-03-02] MEDS ORDERED: LEVO-173 PO (16:59)
[2021-03-02] MEDS ORDERED: LEVO250T59 PO (16:59)
[2021-03-02] MEDS ORDERED: ALBU90AE IH (16:59)
[2021-03-02] MEDS ORDERED: ALBU0.63 IH (16:59)
[2021-03-02] MEDS ORDERED: NITR0.4T50 SL (17:04)
[2021-03-02] MEDS ORDERED: FERS325 PO (17:04)
[2021-03-02 19:45] LABS: BASOPHILS % (AUTO) 0.5 % (0.0-5.0); EOSINOPHILS % (AUTO) 1.5 % (0.0-8.0); MEAN CORPUSCULAR HEMOGLOBIN 26.1 pg (27.0-33.0); MEAN CORPUSCULAR HGB CONC 29.2 g/dL (32.0-36.0); MEAN CORPUSCULAR VOLUME 89.2 fL (79-99); MONOCYTES % (AUTO) 7.8 % (3.0-13.0); NEUTROPHILS % (AUTO) 79.9 % (40.0-77.0); PLATELET COUNT (AUTO) 228 K/uL (130-400); RED BLOOD CELL COUNT(AUTO) 4.26 MIL/uL (4.50-6.20); RED CELL DISTRIBUTION WIDTH 16.1 % (11.0-15.5); WHITE BLOOD COUNT (AUTO) 7.9 K/uL (4.8-10.8)
[2021-03-02 20:31] VITALS: BP 130/51
[2021-03-02] MEDS ORDERED: FUROSEMIDE 40MG VIAL IVP SCH (21:00)
[2021-03-02] MEDS ORDERED: FAMOTIDINE 20MG VIAL IV SCH ×2 (21:00)
[2021-03-02] MEDS: ZOSYN 3.375GM+NS 50ML 50 ML IV SCH (21:21)
[2021-03-02] MEDS: ROPINIROLE HCL 1 MG TABLET PO SCH (21:21)
[2021-03-02] MEDS: METOPROLOL TARTRATE 25 MG TAB PO SCH (21:21)
[2021-03-02] MEDS: ATORVASTATIN 10 MG TABLET PO SCH (21:21)
[2021-03-03] VITALS (9 sets, daily range): BP systolic 115–161; BP diastolic 33–90
[2021-03-03] MEDS: ZOSYN 3.375GM+NS 50ML 50 ML IV SCH ×3 (05:02→20:32)
[2021-03-03] MEDS: LEVOTHYROXINE 125 MCG TABLET PO SCH (06:04)
[2021-03-03] MEDS ORDERED: LEVOTHYROXINE 100 MCG TABLET PO SCH (06:30)
[2021-03-03] MEDS: ISOSORBIDE MONO 30MG SR TAB PO SCH (08:23)
[2021-03-03] MEDS: ASPIRIN 81 MG EC TAB PO SCH (08:24)
[2021-03-03] MEDS: PANTOPRAZOLE 40 MG TAB DR PO SCH (08:24)
[2021-03-03] MEDS: CLOPIDOGREL 75MG TAB PO SCH (08:24)
[2021-03-03] MEDS: FUROSEMIDE 80 MG TABLET PO SCH ×2 (08:24→17:20)
[2021-03-03] MEDS: METOPROLOL TARTRATE 25 MG TAB PO SCH ×2 (09:00→20:34)
[2021-03-03] MEDS: AMIODARONE 200 MG TABLET PO SCH (09:00)
[2021-03-03] MEDS: ROPINIROLE HCL 1 MG TABLET PO SCH (20:31)
[2021-03-03] MEDS: ATORVASTATIN 10 MG TABLET PO SCH (20:31)
[2021-03-04 03:26] VITALS: BP 121/49
[2021-03-04] MEDS: LEVOTHYROXINE 125 MCG TABLET PO SCH (04:35)
[2021-03-04] MEDS: ZOSYN 3.375GM+NS 50ML 50 ML IV SCH ×3 (04:35→23:56)
[2021-03-04 05:55] LABS: BASOPHILS % (AUTO) 0.7 % (0.0-5.0); EOSINOPHILS % (AUTO) 2.7 % (0.0-8.0); HEMATOCRIT 37.3 % (42-54); LYMPHOCYTES % (AUTO) 13.2 % (21.0-51.0); MEAN CORPUSCULAR HEMOGLOBIN 25.7 pg (27.0-33.0); MEAN CORPUSCULAR HGB CONC 29.2 g/dL (32.0-36.0); MONOCYTES % (AUTO) 8.8 % (3.0-13.0); NEUTROPHILS % (AUTO) 74.3 % (40.0-77.0); PLATELET COUNT (AUTO) 235 K/uL (130-400); RED BLOOD CELL COUNT(AUTO) 4.24 MIL/uL (4.50-6.20); RED CELL DISTRIBUTION WIDTH 15.8 % (11.0-15.5)
[2021-03-04 06:36] LABS: BILIRUBIN,TOTAL 0.8 mg/dL (0.2-1.0); CREATININE 1.9 mg/dL (0.5-1.5); POTASSIUM 3.2 mmol/L (3.5-5.1); TOTAL PROTEIN, SERUM 7.6 g/dL (6.0-8.3)
[2021-03-04 09:51] VITALS: BP 123/62
[2021-03-04] MEDS: PANTOPRAZOLE 40 MG TAB DR PO SCH (09:53)
[2021-03-04] MEDS: ASPIRIN 81 MG EC TAB PO SCH (09:53)
[2021-03-04] MEDS: CLOPIDOGREL 75MG TAB PO SCH (09:54)
[2021-03-04] MEDS: AMIODARONE 200 MG TABLET PO SCH (09:54)
[2021-03-04] MEDS: FUROSEMIDE 80 MG TABLET PO SCH ×2 (09:54→16:28)
[2021-03-04] MEDS: ISOSORBIDE MONO 30MG SR TAB PO SCH (09:54)
[2021-03-04] MEDS: METOPROLOL TARTRATE 25 MG TAB PO SCH ×2 (09:59→20:05)
[2021-03-04 11:19] VITALS: BP 141/70
[2021-03-04 16:31] VITALS: BP 124/64
[2021-03-04] MEDS: ATORVASTATIN 10 MG TABLET PO SCH (20:03)
[2021-03-04] MEDS: ROPINIROLE HCL 1 MG TABLET PO SCH (20:03)
[2021-03-04 20:36] VITALS: BP 126/76
[2021-03-05 00:07] VITALS: BP 131/62
[2021-03-05 03:30] VITALS: BP 141/58
[2021-03-05] MEDS: LEVOTHYROXINE 125 MCG TABLET PO SCH (05:12)
[2021-03-05 05:47] LABS: BASOPHILS % (AUTO) 0.7 % (0.0-5.0); EOSINOPHILS % (AUTO) 2.3 % (0.0-8.0); HEMATOCRIT 34.5 % (42-54); LYMPHOCYTES % (AUTO) 13.7 % (21.0-51.0); MEAN CORPUSCULAR HEMOGLOBIN 25.5 pg (27.0-33.0); MEAN CORPUSCULAR HGB CONC 29.3 g/dL (32.0-36.0); MEAN CORPUSCULAR VOLUME 87.1 fL (79-99); MONOCYTES % (AUTO) 9.5 % (3.0-13.0); NEUTROPHILS % (AUTO) 73.4 % (40.0-77.0); PLATELET COUNT (AUTO) 207 K/uL (130-400); RED BLOOD CELL COUNT(AUTO) 3.96 MIL/uL (4.50-6.20); RED CELL DISTRIBUTION WIDTH 15.9 % (11.0-15.5); WHITE BLOOD COUNT (AUTO) 6.9 K/uL (4.8-10.8)
[2021-03-05 06:04] LABS: ALBUMIN 2.8 g/dL (3.5-5.0); BILIRUBIN,TOTAL 0.8 mg/dL (0.2-1.0); CREATININE 1.9 mg/dL (0.5-1.5); POTASSIUM 3.8 mmol/L (3.5-5.1); TOTAL PROTEIN, SERUM 7.1 g/dL (6.0-8.3)
[2021-03-05 08:26] VITALS: BP 135/50
[2021-03-05] MEDS: METOPROLOL TARTRATE 25 MG TAB PO SCH ×2 (09:00→19:57)
[2021-03-05] MEDS: FUROSEMIDE 80 MG TABLET PO SCH ×2 (09:27→17:19)
[2021-03-05] MEDS: ASPIRIN 81 MG EC TAB PO SCH (09:27)
[2021-03-05] MEDS: PANTOPRAZOLE 40 MG TAB DR PO SCH (09:27)
[2021-03-05] MEDS: CLOPIDOGREL 75MG TAB PO SCH (09:27)
[2021-03-05] MEDS: ISOSORBIDE MONO 30MG SR TAB PO SCH (09:28)
[2021-03-05] MEDS: AMIODARONE 200 MG TABLET PO SCH (09:28)
[2021-03-05] MEDS: ZOSYN 3.375GM+NS 50ML 50 ML IV SCH ×3 (09:32→21:06)
[2021-03-05 11:57] VITALS: BP 135/47
[2021-03-05 19:54] VITALS: BP 138/76
[2021-03-05] MEDS: ROPINIROLE HCL 1 MG TABLET PO SCH (19:57)
[2021-03-05] MEDS: ATORVASTATIN 10 MG TABLET PO SCH (19:57)
[2021-03-06] VITALS (7 sets, daily range): BP systolic 111–155; BP diastolic 41–75
[2021-03-06 05:20] LABS: BASOPHILS % (AUTO) 0.6 % (0.0-5.0); EOSINOPHILS % (AUTO) 2.4 % (0.0-8.0); HEMATOCRIT 33.9 % (42-54); LYMPHOCYTES % (AUTO) 14.1 % (21.0-51.0); MEAN CORPUSCULAR HGB CONC 29.8 g/dL (32.0-36.0); MEAN CORPUSCULAR VOLUME 87.4 fL (79-99); MONOCYTES % (AUTO) 10.3 % (3.0-13.0); NEUTROPHILS % (AUTO) 72.3 % (40.0-77.0); PLATELET COUNT (AUTO) 197 K/uL (130-400); RED BLOOD CELL COUNT(AUTO) 3.88 MIL/uL (4.50-6.20); WHITE BLOOD COUNT (AUTO) 6.2 K/uL (4.8-10.8)
[2021-03-06] MEDS: LEVOTHYROXINE 125 MCG TABLET PO SCH (05:30)
[2021-03-06] MEDS: ZOSYN 3.375GM+NS 50ML 50 ML IV SCH ×3 (05:30→21:04)
[2021-03-06 05:48] LABS: ALBUMIN 2.7 g/dL (3.5-5.0); BILIRUBIN,TOTAL 0.6 mg/dL (0.2-1.0); CREATININE 1.7 mg/dL (0.5-1.5); POTASSIUM 3.1 mmol/L (3.5-5.1); TOTAL PROTEIN, SERUM 6.8 g/dL (6.0-8.3)
[2021-03-06] MEDS: ISOSORBIDE MONO 30MG SR TAB PO SCH (09:08)
[2021-03-06] MEDS: ASPIRIN 81 MG EC TAB PO SCH (09:08)
[2021-03-06] MEDS: FUROSEMIDE 80 MG TABLET PO SCH ×2 (09:09→17:57)
[2021-03-06] MEDS: PANTOPRAZOLE 40 MG TAB DR PO SCH (09:09)
[2021-03-06] MEDS: METOPROLOL TARTRATE 25 MG TAB PO SCH ×2 (09:09→21:04)
[2021-03-06] MEDS: AMIODARONE 200 MG TABLET PO SCH (09:09)
[2021-03-06] MEDS: CLOPIDOGREL 75MG TAB PO SCH (09:09)
[2021-03-06] MEDS: KCL 20 MEQ ERTAB PO SCH (09:10)
[2021-03-06] MEDS: FERROUS SULFATE 325 MG TABLET.DR PO SCH (09:11)
[2021-03-06] MEDS: ROPINIROLE HCL 1 MG TABLET PO SCH (21:04)
[2021-03-06] MEDS: ATORVASTATIN 10 MG TABLET PO SCH (21:04)
[2021-03-07 04:06] VITALS: BP 103/58
[2021-03-07] MEDS: ZOSYN 3.375GM+NS 50ML 50 ML IV SCH ×2 (05:08→15:45)
[2021-03-07] MEDS: LEVOTHYROXINE 125 MCG TABLET PO SCH (06:11)
[2021-03-07 06:26] LABS: BASOPHILS % (AUTO) 0.6 % (0.0-5.0); EOSINOPHILS % (AUTO) 2.4 % (0.0-8.0); HEMATOCRIT 35.8 % (42-54); LYMPHOCYTES % (AUTO) 13.4 % (21.0-51.0); MEAN CORPUSCULAR HEMOGLOBIN 25.9 pg (27.0-33.0); MEAN CORPUSCULAR HGB CONC 29.6 g/dL (32.0-36.0); MEAN CORPUSCULAR VOLUME 87.5 fL (79-99); MONOCYTES % (AUTO) 10.2 % (3.0-13.0); NEUTROPHILS % (AUTO) 73.1 % (40.0-77.0); PLATELET COUNT (AUTO) 193 K/uL (130-400); RED BLOOD CELL COUNT(AUTO) 4.09 MIL/uL (4.50-6.20); WHITE BLOOD COUNT (AUTO) 6.6 K/uL (4.8-10.8)
[2021-03-07 06:40] LABS: CREATININE 1.9 mg/dL (0.5-1.5); MAGNESIUM 2.6 mg/dL (1.80-2.40); POTASSIUM 3.5 mmol/L (3.5-5.1)
[2021-03-07 07:30] VITALS: BP 127/32
[2021-03-07] MEDS: FUROSEMIDE 80 MG TABLET PO SCH ×2 (09:00→17:00)
[2021-03-07] MEDS: CLOPIDOGREL 75MG TAB PO SCH (09:00)
[2021-03-07 11:00] VITALS: BP 122/36
[2021-03-07] MEDS: ASPIRIN 81 MG EC TAB PO SCH (11:02)
[2021-03-07] MEDS: FERROUS SULFATE 325 MG TABLET.DR PO SCH (11:03)
[2021-03-07] MEDS: PANTOPRAZOLE 40 MG TAB DR PO SCH (11:03)
[2021-03-07] MEDS: METOPROLOL TARTRATE 25 MG TAB PO SCH (11:03)
[2021-03-07] MEDS: ISOSORBIDE MONO 30MG SR TAB PO SCH (11:03)
[2021-03-07] MEDS: AMIODARONE 200 MG TABLET PO SCH (11:03)
[2021-03-07] MEDS: KCL 20 MEQ ERTAB PO SCH (11:04)
[2021-03-07 16:00] VITALS: BP 104/43
[2021-03-07] MEDS ORDERED: CEFU500T67 PO (16:17)
[2021-03-09] MEDS ORDERED: ERGOCALCIFEROL (VITAMIN D2) 50,000 UNIT CAPSULE PO SCH (09:00)
== END 2021-03-07 18:20 | disposition home or self-care (01) | DRG 602 ==
LOC: EDH 08:51 → OBSVTOIN 12:23 → EDHIP 12:23 → 3BH 03-03 02:09
PROVIDERS: ADMIT Internal Medicine; ATTEND Internal Medicine
PROC: 5A09357 Assistance with Respiratory Ventilation, Less than 24 Consecutive Hours, Continuous Positive Airway Pressure (ICD-10-PCS; principal; 2021-03-03)
PROC: 5A09357 Assistance with Respiratory Ventilation, Less than 24 Consecutive Hours, Continuous Positive Airway Pressure (ICD-10-PCS; 2021-03-04)
PROC: 5A09357 Assistance with Respiratory Ventilation, Less than 24 Consecutive Hours, Continuous Positive Airway Pressure (ICD-10-PCS; 2021-03-05)
PROC: 5A09357 Assistance with Respiratory Ventilation, Less than 24 Consecutive Hours, Continuous Positive Airway Pressure (ICD-10-PCS; 2021-03-06)
PROC: 5A09357 Assistance with Respiratory Ventilation, Less than 24 Consecutive Hours, Continuous Positive Airway Pressure (ICD-10-PCS; 2021-03-07)
DX: L03.115 Cellulitis of right lower limb (principal); I50.33 Acute on chronic diastolic (congestive) heart failure; I13.0 Hypertensive heart and chronic kidney disease with heart failure and stage 1 through stage 4 chronic kidney disease, or unspecified chronic kidney disease; Z68.43 Body mass index [BMI] 50.0-59.9, adult; N17.9 Acute kidney failure, unspecified; S80.01XA Contusion of right knee, initial encounter; I50.9 Heart failure, unspecified; Z20.822 Contact with and (suspected) exposure to COVID-19; I25.10 Atherosclerotic heart disease of native coronary artery without angina pectoris; J44.9 Chronic obstructive pulmonary disease, unspecified; E78.5 Hyperlipidemia, unspecified; K59.00 Constipation, unspecified; E11.22 Type 2 diabetes mellitus with diabetic chronic kidney disease; M71.561 Other bursitis, not elsewhere classified, right knee; N18.30 Chronic kidney disease, stage 3 unspecified; G47.00 Insomnia, unspecified; E66.01 Morbid (severe) obesity due to excess calories; M19.90 Unspecified osteoarthritis, unspecified site; G47.33 Obstructive sleep apnea (adult) (pediatric); Z96.651 Presence of right artificial knee joint; Y93.89 Activity, other specified; Y92.89 Other specified places as the place of occurrence of the external cause; Y99.8 Other external cause status; Z95.5 Presence of coronary angioplasty implant and graft; Z95.2 Presence of prosthetic heart valve; Z95.0 Presence of cardiac pacemaker; Z95.1 Presence of aortocoronary bypass graft; Z82.3 Family history of stroke; Z80.3 Family history of malignant neoplasm of breast; Z82.0 Family history of epilepsy and other diseases of the nervous system; Z82.5 Family history of asthma and other chronic lower respiratory diseases; Z83.3 Family history of diabetes mellitus; Z82.49 Family history of ischemic heart disease and other diseases of the circulatory system
CPT/HCPCS: 36415; 71045; 73562; 76882; 80048; 80053; 80061; 81003; 82550; 82948; 83735; 83874; 83880; 84145; 84443; 84484; 85025; 85378; 86140; 87040; 87070; 87076; 87635; 93005; 93971; 97039; C9803; G0378; J1940; J2543

== ENCOUNTER 2021-10-29 21:17 | Inpatient (IN) | payer OTHER ==
[~2021-10-29] VITALS: Ht 172.7 cm; Wt 157.0 kg
[~2021-10-29 21:17] MED LIST changes: +ACET-66 PO; -AMIO200T44 PO; +AMIO200T68 PO; -ATOR10 PO; +ATOR20TA65 PO; +BUDE10.2 IH; +BUME1TAB7 PO; +CHOL2000 PO; -CLOP75TA14 PO; +CLOP75TA32 PO; -ERGO500014 PO; -FURO80TA3 PO; -LEVO100T4 PO; +LEVO750T46 PO; +METO5TAB7 PO; +NITR0.4T50 SL; +POTA-193 PO; -POTA20TA12 PO; +PRED5TAB PO; -SYMBICORT IH
[2021-10-29 21:58] LABS: BASOPHILS % (AUTO) 0.5 % (0.0-5.0); EOSINOPHILS % (AUTO) 1.1 % (0.0-8.0); LYMPHOCYTES % (AUTO) 12.9 % (21.0-51.0); MEAN CORPUSCULAR HEMOGLOBIN 23.3 pg (27.0-33.0); MEAN CORPUSCULAR HGB CONC 27.3 g/dL (32.0-36.0); MEAN CORPUSCULAR VOLUME 85.3 fL (79-99); MONOCYTES % (AUTO) 6.3 % (3.0-13.0); NEUTROPHILS % (AUTO) 78.8 % (40.0-77.0); PLATELET COUNT (AUTO) 222 K/uL (130-400); RED BLOOD CELL COUNT(AUTO) 4.34 MIL/uL (4.50-6.20); RED CELL DISTRIBUTION WIDTH 19.6 % (11.0-15.5); WHITE BLOOD COUNT (AUTO) 8.3 K/uL (4.8-10.8)
[2021-10-29 22:17] LABS: CREATININE 1.9 mg/dL (0.5-1.5); POTASSIUM 3.8 mmol/L (3.5-5.1)
[2021-10-29 22:19] LABS: B-TYPE NATRIURETIC PEPTIDE 589 pg/mL (0-100)
[2021-10-29 22:20] LABS: INR 1.24 (0.85-1.15); PROTHROMBIN TIME 13.3 SEC (9.6-11.6)
[2021-10-29 22:32] LABS: BILIRUBIN,TOTAL 0.7 mg/dL (0.2-1.0); TOTAL PROTEIN, SERUM 7.2 g/dL (6.0-8.3)
[2021-10-29] MEDS ORDERED: ACETAMINOPHEN WITH CODEINE 1 TAB TAB PO PRN (23:30)
[2021-10-29] MEDS ORDERED: ACETAMINOPHEN 325 MG TAB PO PRN (23:30)
[2021-10-29] MEDS ORDERED: DIPHENHYDRAMINE HCL 25 MG CAPSULE PO PRN (23:30)
[2021-10-29] MEDS ORDERED: GUAIFENESIN-DM 200/20 MG 10 ML PO PRN (23:30)
[2021-10-29] MEDS ORDERED: ONDANSETRON 4MG INJ IV PRN (23:30)
[2021-10-29] MEDS ORDERED: LACTULOSE 20 GM/30 ML UDCUP PO PRN (23:30)
[2021-10-29] MEDS ORDERED: MAG/ALUM/SIMETH 30 ML UDCUP PO PRN (23:30)
[2021-10-29] MEDS ORDERED: NITROGLYCERIN 0.4 MG SL TAB SL PRN (23:30)
[2021-10-30] MEDS: FUROSEMIDE 40MG VIAL IVP SCH ×2 (08:29→21:08)
[2021-10-30] MEDS: FAMOTIDINE 20MG VIAL IV SCH ×2 (08:29→21:08)
[2021-10-30] MEDS: HEPARIN 5,000 UNIT VIAL SQ SCH ×2 (08:29→21:16)
[2021-10-30 16:00] VITALS: BP 150/71
[2021-10-30] MEDS ORDERED: AMIO200T44 PO (16:28)
[2021-10-30] MEDS ORDERED: LEVO100C4 PO (16:28)
[2021-10-30 19:59] VITALS: BP_SYST 134; BP_SYST 154; BP_DIAS 49
[2021-10-30] MEDS: ROPINIROLE HCL 1 MG TABLET PO SCH (21:08)
[2021-10-30] MEDS: METOPROLOL TARTRATE 25 MG TAB PO SCH (21:08)
[2021-10-30 23:43] VITALS: BP 148/43
[2021-10-31 04:06] VITALS: BP 119/51
[2021-10-31] MEDS: LEVOTHYROXINE 100 MCG TABLET PO SCH (07:13)
[2021-10-31 07:22] VITALS: BP 107/50
[2021-10-31] MEDS: ASPIRIN 81 MG EC TAB PO SCH (08:16)
[2021-10-31] MEDS: KCL 20 MEQ ERTAB PO SCH (08:17)
[2021-10-31] MEDS: FAMOTIDINE 20MG VIAL IV SCH ×2 (08:17→20:58)
[2021-10-31] MEDS: HEPARIN 5,000 UNIT VIAL SQ SCH ×2 (08:19→21:00)
[2021-10-31] MEDS: PANTOPRAZOLE 40 MG TAB DR PO SCH (08:20)
[2021-10-31] MEDS: AMIODARONE 200 MG TABLET PO SCH (08:20)
[2021-10-31] MEDS: ISOSORBIDE MONO 30MG SR TAB PO SCH (08:20)
[2021-10-31] MEDS: ATORVASTATIN 20 MG TABLET PO SCH (08:21)
[2021-10-31] MEDS: FUROSEMIDE 40MG VIAL IVP SCH ×2 (08:21→20:59)
[2021-10-31] MEDS: CLOPIDOGREL 75MG TAB PO SCH (08:21)
[2021-10-31] MEDS: METOPROLOL TARTRATE 25 MG TAB PO SCH (08:21)
[2021-10-31 08:27] LABS: BASOPHILS % (AUTO) 0.3 % (0.0-5.0); EOSINOPHILS % (AUTO) 1.2 % (0.0-8.0); HEMATOCRIT 37.6 % (42-54); LYMPHOCYTES % (AUTO) 12.9 % (21.0-51.0); MEAN CORPUSCULAR HEMOGLOBIN 23.3 pg (27.0-33.0); MEAN CORPUSCULAR HGB CONC 26.6 g/dL (32.0-36.0); MEAN CORPUSCULAR VOLUME 87.4 fL (79-99); MONOCYTES % (AUTO) 8.4 % (3.0-13.0); NEUTROPHILS % (AUTO) 76.7 % (40.0-77.0); PLATELET COUNT (AUTO) 216 K/uL (130-400); RED CELL DISTRIBUTION WIDTH 19.5 % (11.0-15.5); WHITE BLOOD COUNT (AUTO) 6.4 K/uL (4.8-10.8)
[2021-10-31 08:39] LABS: CREATININE 1.8 mg/dL (0.5-1.5); MAGNESIUM 2.2 mg/dL (1.80-2.40); POTASSIUM 3.9 mmol/L (3.5-5.1)
[2021-10-31 08:44] LABS: B-TYPE NATRIURETIC PEPTIDE 542 pg/mL (0-100)
[2021-10-31 11:37] VITALS: BP 126/58
[2021-10-31] MEDS: AcetaZOLAMIDE 250 MG TAB PO SCH ×2 (12:08→20:59)
[2021-10-31] MEDS: CARVEDILOL 3.125 MG TABLET PO SCH ×2 (12:09→20:58)
[2021-10-31 16:30] VITALS: BP 110/47
[2021-10-31 19:38] VITALS: BP 127/42
[2021-10-31] MEDS: ROPINIROLE HCL 1 MG TABLET PO SCH (20:58)
[2021-10-31 23:55] VITALS: BP 102/63
[2021-11-01 04:05] VITALS: BP 113/49
[2021-11-01] MEDS: LEVOTHYROXINE 100 MCG TABLET PO SCH (06:38)
[2021-11-01 07:12] VITALS: BP 125/74
[2021-11-01] MEDS: ASPIRIN 81 MG EC TAB PO SCH (08:38)
[2021-11-01] MEDS: FUROSEMIDE 40MG VIAL IVP SCH (08:38)
[2021-11-01] MEDS: FAMOTIDINE 20MG VIAL IV SCH (08:38)
[2021-11-01 08:39] VITALS: BP 125/74
[2021-11-01] MEDS: ATORVASTATIN 20 MG TABLET PO SCH (08:39)
[2021-11-01] MEDS: KCL 20 MEQ ERTAB PO SCH (08:39)
[2021-11-01] MEDS: ISOSORBIDE MONO 30MG SR TAB PO SCH (08:39)
[2021-11-01] MEDS: AcetaZOLAMIDE 250 MG TAB PO SCH (08:39)
[2021-11-01] MEDS: AMIODARONE 200 MG TABLET PO SCH (08:39)
[2021-11-01] MEDS: PANTOPRAZOLE 40 MG TAB DR PO SCH (08:39)
[2021-11-01] MEDS: CARVEDILOL 3.125 MG TABLET PO SCH (08:39)
[2021-11-01] MEDS: CLOPIDOGREL 75MG TAB PO SCH (08:40)
[2021-11-01] MEDS ORDERED: FURO40TA7 PO (08:49)
[2021-11-01] MEDS: HEPARIN 5,000 UNIT VIAL SQ SCH (08:55)
[2021-11-01 09:15] LABS: HEMATOCRIT 37.2 % (42-54); MEAN CORPUSCULAR HEMOGLOBIN 23.8 pg (27.0-33.0); MEAN CORPUSCULAR HGB CONC 27.7 g/dL (32.0-36.0); MEAN CORPUSCULAR VOLUME 86.1 fL (79-99); RED BLOOD CELL COUNT(AUTO) 4.32 MIL/uL (4.50-6.20); RED CELL DISTRIBUTION WIDTH 19.3 % (11.0-15.5); WHITE BLOOD COUNT (AUTO) 6.4 K/uL (4.8-10.8)
[2021-11-01 09:28] LABS: CREATININE 1.9 mg/dL (0.5-1.5); POTASSIUM 3.7 mmol/L (3.5-5.1)
[2021-11-01 09:33] LABS: ALBUMIN 2.9 g/dL (3.5-5.0); BILIRUBIN,TOTAL 0.8 mg/dL (0.2-1.0); MAGNESIUM 2.4 mg/dL (1.80-2.40); TOTAL PROTEIN, SERUM 7.5 g/dL (6.0-8.3)
== END 2021-11-01 11:35 | disposition home or self-care (01) | DRG 291 ==
LOC: EDH 21:17 → EDHIP 23:13 → 2AH 10-30 16:00
PROVIDERS: ADMIT Hospitalist; ATTEND Hospitalist
PROC: 5A09357 Assistance with Respiratory Ventilation, Less than 24 Consecutive Hours, Continuous Positive Airway Pressure (ICD-10-PCS; principal; 2021-10-30)
PROC: 5A09357 Assistance with Respiratory Ventilation, Less than 24 Consecutive Hours, Continuous Positive Airway Pressure (ICD-10-PCS; 2021-10-31)
PROC: 5A09357 Assistance with Respiratory Ventilation, Less than 24 Consecutive Hours, Continuous Positive Airway Pressure (ICD-10-PCS; 2021-11-01)
DX: I13.0 Hypertensive heart and chronic kidney disease with heart failure and stage 1 through stage 4 chronic kidney disease, or unspecified chronic kidney disease (principal); I50.33 Acute on chronic diastolic (congestive) heart failure; Z68.43 Body mass index [BMI] 50.0-59.9, adult; E03.9 Hypothyroidism, unspecified; E11.22 Type 2 diabetes mellitus with diabetic chronic kidney disease; E66.01 Morbid (severe) obesity due to excess calories; E78.5 Hyperlipidemia, unspecified; I25.110 Atherosclerotic heart disease of native coronary artery with unstable angina pectoris; I35.0 Nonrheumatic aortic (valve) stenosis; N18.30 Chronic kidney disease, stage 3 unspecified; Z79.899 Other long term (current) drug therapy; Z95.5 Presence of coronary angioplasty implant and graft; Z80.3 Family history of malignant neoplasm of breast; Z82.49 Family history of ischemic heart disease and other diseases of the circulatory system; Z82.5 Family history of asthma and other chronic lower respiratory diseases; Z83.3 Family history of diabetes mellitus; Z82.0 Family history of epilepsy and other diseases of the nervous system; Z82.3 Family history of stroke; Z87.891 Personal history of nicotine dependence; Z96.651 Presence of right artificial knee joint; Z90.49 Acquired absence of other specified parts of digestive tract; Z95.2 Presence of prosthetic heart valve; Z95.0 Presence of cardiac pacemaker; J44.9 Chronic obstructive pulmonary disease, unspecified; Z99.81 Dependence on supplemental oxygen; G47.33 Obstructive sleep apnea (adult) (pediatric); I45.10 Unspecified right bundle-branch block
CPT/HCPCS: 36415; 71045; 80048; 80053; 83735; 83880; 84443; 84484; 85025; 85027; 85610; 93005; 93306; G0378; J1644; J1940; J3490

== ENCOUNTER → 2021-11-15 | Outpatient (CLI) | payer OTHER ==
[~2021-11-15] MED LIST changes: -ACET-66 PO; -ALBU90AE IH; +AMIO200T44 PO; -AMIO200T68 PO; -BUDE10.2 IH; -BUME1TAB7 PO; -CHOL2000 PO; +FURO40TA7 PO; +LEVO100C4 PO; -LEVO750T46 PO; -METO5TAB7 PO; -NITR0.4T50 SL; -PRED5TAB PO
== END | disposition home or self-care (01) ==
LOC: DTH 13:35
PROVIDERS: ATTEND Surgery
DX: G47.33 Obstructive sleep apnea (adult) (pediatric) (principal); E66.01 Morbid (severe) obesity due to excess calories; I10 Essential (primary) hypertension; M19.91 Primary osteoarthritis, unspecified site; E78.00 Pure hypercholesterolemia, unspecified
CPT/HCPCS: 97803

== ENCOUNTER → 2021-12-01 | Outpatient (CLI) | payer OTHER ==
[~2021-12-01] MED LIST changes: +AMOX1TAB16 PO; +TRAM-355 PO
== END | disposition home or self-care (01) ==
LOC: DTH 10:08
PROVIDERS: ATTEND Surgery
DX: Z71.3 Dietary counseling and surveillance (principal); E11.9 Type 2 diabetes mellitus without complications; E78.00 Pure hypercholesterolemia, unspecified; G47.33 Obstructive sleep apnea (adult) (pediatric); I10 Essential (primary) hypertension; M19.91 Primary osteoarthritis, unspecified site; E66.01 Morbid (severe) obesity due to excess calories; Z68.43 Body mass index [BMI] 50.0-59.9, adult
CPT/HCPCS: 97803

== ENCOUNTER → 2021-12-12 | Outpatient (CLI) | payer OTHER ==
[~2021-12-12] VITALS: Ht 180.3 cm; Wt 70.3 kg
[~2021-12-12] MED LIST changes: +REGADENOSON 0.4 MG/5 ML PF SYG IVP SCH
== END | disposition home or self-care (01) ==
LOC: SHCH 08:05
PROVIDERS: ATTEND Internal Medicine Cardiovascular Disease
DX: I11.0 Hypertensive heart disease with heart failure (principal); I50.32 Chronic diastolic (congestive) heart failure; E11.9 Type 2 diabetes mellitus without complications; Z95.0 Presence of cardiac pacemaker
CPT/HCPCS: 78452; 93017; 96374; A9500 ×2; J2785

== ENCOUNTER → 2021-12-18 | Outpatient (CLI) | payer OTHER ==
[~2021-12-18] MED LIST changes: +LIDOCAINE HCL 4% LTA SOL 4 ML VIAL TP ONE; -REGADENOSON 0.4 MG/5 ML PF SYG IVP SCH
== END | disposition home or self-care (01) ==
LOC: WHH 09:02
PROVIDERS: ATTEND Family Medicine
DX: I87.331 Chronic venous hypertension (idiopathic) with ulcer and inflammation of right lower extremity (principal); E11.622 Type 2 diabetes mellitus with other skin ulcer; L97.812 Non-pressure chronic ulcer of other part of right lower leg with fat layer exposed; E11.22 Type 2 diabetes mellitus with diabetic chronic kidney disease; I13.0 Hypertensive heart and chronic kidney disease with heart failure and stage 1 through stage 4 chronic kidney disease, or unspecified chronic kidney disease; N18.30 Chronic kidney disease, stage 3 unspecified; I50.40 Unspecified combined systolic (congestive) and diastolic (congestive) heart failure; E11.51 Type 2 diabetes mellitus with diabetic peripheral angiopathy without gangrene; J44.9 Chronic obstructive pulmonary disease, unspecified; I89.0 Lymphedema, not elsewhere classified; I48.91 Unspecified atrial fibrillation; E78.5 Hyperlipidemia, unspecified; E03.9 Hypothyroidism, unspecified; E78.00 Pure hypercholesterolemia, unspecified; I25.10 Atherosclerotic heart disease of native coronary artery without angina pectoris; G47.33 Obstructive sleep apnea (adult) (pediatric); E66.01 Morbid (severe) obesity due to excess calories; M19.90 Unspecified osteoarthritis, unspecified site; Z68.43 Body mass index [BMI] 50.0-59.9, adult; Z79.82 Long term (current) use of aspirin; Z79.899 Other long term (current) drug therapy; Z87.891 Personal history of nicotine dependence; Z95.1 Presence of aortocoronary bypass graft; Z99.81 Dependence on supplemental oxygen; Z96.651 Presence of right artificial knee joint
CPT/HCPCS: 97597; A4450; A6248

== ENCOUNTER 2022-01-01 14:04 | Emergency (ER) | payer OTHER ==
[~2022-01-01] VITALS: Ht 170.2 cm; Wt 142.9 kg
[~2022-01-01 14:04] MED LIST changes: -LIDOCAINE HCL 4% LTA SOL 4 ML VIAL TP ONE
[2022-01-01 14:25] LABS: BASOPHILS % (AUTO) 0.6 % (0.0-5.0); EOSINOPHILS % (AUTO) 1.3 % (0.0-8.0); HEMATOCRIT 40.2 % (42-54); LYMPHOCYTES % (AUTO) 12.9 % (21.0-51.0); MEAN CORPUSCULAR HEMOGLOBIN 24.7 pg (27.0-33.0); MEAN CORPUSCULAR HGB CONC 30.1 g/dL (32.0-36.0); MEAN CORPUSCULAR VOLUME 82.2 fL (79-99); MONOCYTES % (AUTO) 8.1 % (3.0-13.0); NEUTROPHILS % (AUTO) 76.3 % (40.0-77.0); PLATELET COUNT (AUTO) 233 K/uL (130-400); RED BLOOD CELL COUNT(AUTO) 4.89 MIL/uL (4.50-6.20); RED CELL DISTRIBUTION WIDTH 17.4 % (11.0-15.5); WHITE BLOOD COUNT (AUTO) 10.7 K/uL (4.8-10.8)
[2022-01-01 14:36] LABS: CREATININE 1.8 mg/dL (0.5-1.5); POTASSIUM 3.4 mmol/L (3.5-5.1)
[2022-01-01 14:41] LABS: ALBUMIN 2.8 g/dL (3.5-5.0); BILIRUBIN,TOTAL 0.8 mg/dL (0.2-1.0); TOTAL PROTEIN, SERUM 7.7 g/dL (6.0-8.3)
[2022-01-01] MEDS ORDERED: ONDANSETRON 4MG INJ IVP ONE (15:30)
[2022-01-01] MEDS ORDERED: OSELTAMIVIR PHOSPHATE 75 MG CAP PO SCH (16:00)
[2022-01-01] MEDS ORDERED: OSEL75 PO (16:41)
[2022-01-01] MEDS ORDERED: POLY17PO4 PO (16:41)
[2022-01-01] MEDS ORDERED: LACT1CAP69 PO (16:41)
[2022-01-01] MEDS ORDERED: DICY20TA2 PO (16:41)
[2022-01-01 17:19] VITALS: BP 130/54
== END 2022-01-01 16:50 | disposition home or self-care (01) ==
LOC: EDH 14:04
DX: K46.9 Unspecified abdominal hernia without obstruction or gangrene (principal); N28.9 Disorder of kidney and ureter, unspecified; J10.1 Influenza due to other identified influenza virus with other respiratory manifestations; E66.01 Morbid (severe) obesity due to excess calories; Z68.42 Body mass index [BMI] 45.0-49.9, adult; Z20.822 Contact with and (suspected) exposure to COVID-19; I25.10 Atherosclerotic heart disease of native coronary artery without angina pectoris; I50.9 Heart failure, unspecified; E78.00 Pure hypercholesterolemia, unspecified; Z79.899 Other long term (current) drug therapy; Z79.82 Long term (current) use of aspirin; Z90.89 Acquired absence of other organs; Z98.890 Other specified postprocedural states
CPT/HCPCS: 99284; 74176; 96374; 87635; 84484; 80053; 83690; 85025; 87804 ×2; 36415; C9803; J2405

== ENCOUNTER 2022-11-06 16:43 | Observation (INO) | payer OTHER ==
[~2022-11-06] VITALS: Ht 170.2 cm; Wt 118.8 kg
[~2022-11-06 16:43] MED LIST changes: -AMOX1TAB16 PO; +DICY20TA2 PO; +LACT1CAP69 PO; +POLY17PO4 PO
[2022-11-06 17:51] LABS: BASOPHILS % (AUTO) 0.2 % (0.0-5.0); EOSINOPHILS % (AUTO) 0.3 % (0.0-8.0); LYMPHOCYTES % (AUTO) 6.3 % (21.0-51.0); MEAN CORPUSCULAR HEMOGLOBIN 27.4 pg (27.0-33.0); MEAN CORPUSCULAR VOLUME 91.5 fL (79-99); MONOCYTES % (AUTO) 9.7 % (3.0-13.0); PLATELET COUNT (AUTO) 252 K/uL (130-400); RED BLOOD CELL COUNT(AUTO) 3.28 MIL/uL (4.50-6.20); RED CELL DISTRIBUTION WIDTH 14.8 % (11.0-15.5); WHITE BLOOD COUNT (AUTO) 10.5 K/uL (4.8-10.8)
[2022-11-06 17:55] LABS: APPEARANCE,URINE CLEAR (CLEAR); BILIRUBIN,URINE NEGATIVE (NEGATIVE); COLOR,URINE LIGHT-YELLOW (YELLOW); GLUCOSE, URINE (UA) NEGATIVE (NEGATIVE); KETONES,URINE NEGATIVE (NEGATIVE); LEUKOCYTE ESTERASE ,URINE 75 Leu/uL (NEGATIVE); NITRATE,URINE NEGATIVE (NEGATIVE); OCCULT BLOOD,URINE NEGATIVE (NEGATIVE); PROTEIN,URINE NEGATIVE (NEGATIVE); UROBILINOGEN,URINE 0.2 mg/dL (0.2-1.0)
[2022-11-06 18:06] LABS: BACTERIA,URINE MOD /HPF (None Seen); MUCUS,URINE RARE LPF (None Seen); SQUAMOUS EPITHELIAL CELL,UR RARE /HPF (0-2)
[2022-11-06 18:06] LABS: ALBUMIN 2.1 g/dL (3.5-5.0); CREATININE 2.8 mg/dL (0.5-1.5); POTASSIUM 4.1 mmol/L (3.5-5.1); TOTAL PROTEIN, SERUM 7.5 g/dL (6.0-8.3)
[2022-11-06] MEDS ORDERED: ONDANSETRON 4MG INJ IVP ONE (18:30)
[2022-11-06] MEDS ORDERED: MORPHINE 4 MG SYG IVP ONE (18:30)
[2022-11-06] MEDS ORDERED: LACTATED RINGERS 1000ML 1,000 ML IV ONE (18:30)
[2022-11-06] MEDS ORDERED: ZOSYN 3.375GM+NS 50ML 50 ML IVPB STA (20:25)
[2022-11-06] MEDS ORDERED: ACETAMINOPHEN 325 MG TAB PO PRN (21:30)
[2022-11-06] MEDS ORDERED: DOCUSATE SODIUM 100 MG CAP PO PRN (21:30)
[2022-11-06] MEDS ORDERED: LACTULOSE 20 GM/30 ML UDCUP PO PRN (21:30)
[2022-11-06] MEDS ORDERED: ONDANSETRON 4MG INJ IVP PRN (21:30)
[2022-11-06] MEDS ORDERED: HYDRALAZINE 20MG/ML VIAL IV PRN (21:30)
[2022-11-06] MEDS ORDERED: CLONIDINE HCL 0.1 MG TABLET PO PRN (21:30)
[2022-11-06] MEDS ORDERED: ACETAMINOPHEN 650 MG SUPPOSITORY RC PRN (21:30)
[2022-11-06] MEDS ORDERED: LABETALOL 20MG SYG IV PRN (21:30)
[2022-11-06] MEDS ORDERED: TEMAZEPAM 15 MG CAPSULE PO PRN (21:30)
[2022-11-06 21:31] LABS: INR 1.05 (0.85-1.15); PROTHROMBIN TIME 11.4 SEC (9.6-11.6)
[2022-11-06 21:32] LABS: PARTIAL THROMBOPLASTIN TIME 27.9 SEC (26.3-35.5)
[2022-11-06] MEDS ORDERED: AMIO200T44 PO (21:39)
[2022-11-06] MEDS ORDERED: LEVO100T12 PO (21:39)
[2022-11-06] MEDS ORDERED: ROPI2TAB7 PO (21:39)
[2022-11-06] MEDS ORDERED: ISOS30TA92 PO (21:39)
[2022-11-06] MEDS ORDERED: FURO80TA3 PO (21:39)
[2022-11-06] MEDS ORDERED: ATOR20TA65 PO (21:39)
[2022-11-06] MEDS ORDERED: PANT40TA54 PO (21:39)
[2022-11-06] MEDS ORDERED: METO25TA6 PO (21:39)
[2022-11-06] MEDS ORDERED: POTA-364 PO (21:39)
[2022-11-06] MEDS ORDERED: AEC81 PO (21:39)
[2022-11-06] MEDS ORDERED: CLOP-31 PO (21:39)
[2022-11-06] MEDS: LACTATED RINGERS 1000ML 1,000 ML IV SCH (21:52)
[2022-11-06 23:35] VITALS: BP 108/71
[2022-11-07] MEDS ORDERED: METO2.5T2 PO (00:03)
[2022-11-07] MEDS ORDERED: FURO40TA5 PO (00:03)
[2022-11-07] MEDS ORDERED: TAMSULOSIN PO (00:13)
[2022-11-07] MEDS ORDERED: MIDO5TAB4 PO (00:13)
[2022-11-07] MEDS ORDERED: LEVO125T11 PO (00:13)
[2022-11-07] MEDS ORDERED: VIT C PO (00:15)
[2022-11-07] MEDS ORDERED: FERR-82 PO (00:15)
[2022-11-07] MEDS ORDERED: BUDE10.2 IH (00:23)
[2022-11-07] MEDS ORDERED: PRO AIR IH (00:23)
[2022-11-07] MEDS ORDERED: HYDROMORPHONE 0.5 MG SYG (0.5MG/0.5ML) IVP ONE (03:30)
[2022-11-07 04:00] VITALS: BP 99/38
[2022-11-07 05:42] LABS: RED BLOOD CELL COUNT(AUTO) 2.97 MIL/uL (4.50-6.20); WHITE BLOOD COUNT (AUTO) 8.1 K/uL (4.8-10.8)
[2022-11-07 05:43] LABS: BASOPHILS % (AUTO) 0.2 % (0.0-5.0); EOSINOPHILS % (AUTO) 0.9 % (0.0-8.0); HEMATOCRIT 27.5 % (42-54); LYMPHOCYTES % (AUTO) 10.5 % (21.0-51.0); MEAN CORPUSCULAR HEMOGLOBIN 27.3 pg (27.0-33.0); MEAN CORPUSCULAR HGB CONC 29.5 g/dL (32.0-36.0); MEAN CORPUSCULAR VOLUME 92.6 fL (79-99); NEUTROPHILS % (AUTO) 75.7 % (40.0-77.0); PLATELET COUNT (AUTO) 204 K/uL (130-400); RED CELL DISTRIBUTION WIDTH 14.9 % (11.0-15.5)
[2022-11-07 05:46] LABS: CREATININE 2.7 mg/dL (0.5-1.5); MAGNESIUM 1.8 mg/dL (1.80-2.40); PHOSPHORUS 4.2 mg/dL (2.5-4.9)
[2022-11-07] MEDS: INSULIN HUMULIN R 100 UNIT/ML 3ML SQ SCH ×4 (06:31→21:00)
[2022-11-07 08:10] VITALS: BP 128/45
[2022-11-07] MEDS ORDERED: 0.9%NACL 50ML IV SCH (11:00)
[2022-11-07] MEDS ORDERED: ZOSYN 3.375GM +NS 50ML IVPB SCH (11:00)
[2022-11-07 11:12] VITALS: BP 81/45
[2022-11-07] MEDS: LACTATED RINGERS 1000ML 1,000 ML IV SCH (11:39)
[2022-11-07] MEDS: ZOSYN 3.375GM+NS 50ML 50 ML IVPB SCH ×2 (11:39→23:18)
[2022-11-07 16:45] VITALS: BP 98/47
[2022-11-07 19:00] VITALS: BP 88/49
[2022-11-07] MEDS ORDERED: PHARMACY COMMUNICATION MISC SCH (21:00)
[2022-11-07] MEDS: GENTAMICIN 15 GM CREAM TP SCH (23:14)
[2022-11-07 23:30] VITALS: BP 127/51
[2022-11-08 04:00] VITALS: BP 94/50
[2022-11-08] MEDS: INSULIN HUMULIN R 100 UNIT/ML 3ML SQ SCH ×3 (06:02→16:30)
[2022-11-08 08:00] VITALS: BP 89/49
[2022-11-08] MEDS: GENTAMICIN 15 GM CREAM TP SCH (09:00)
[2022-11-08 09:55] LABS: HEMATOCRIT 27.8 % (42-54); MEAN CORPUSCULAR HEMOGLOBIN 27.1 pg (27.0-33.0); MEAN CORPUSCULAR HGB CONC 28.8 g/dL (32.0-36.0); MEAN CORPUSCULAR VOLUME 94.2 fL (79-99); RED BLOOD CELL COUNT(AUTO) 2.95 MIL/uL (4.50-6.20); RED CELL DISTRIBUTION WIDTH 14.8 % (11.0-15.5)
[2022-11-08 10:05] LABS: CREATININE 2.8 mg/dL (0.5-1.5); POTASSIUM 3.6 mmol/L (3.5-5.1)
[2022-11-08] MEDS: ZOSYN 3.375GM+NS 50ML 50 ML IVPB SCH (11:21)
[2022-11-08 12:00] VITALS: BP 100/67
[2022-11-08 16:00] VITALS: BP 107/61
[2022-11-08] MEDS ORDERED: TRAM-355 PO (17:00)
== END 2022-11-08 17:00 | disposition home or self-care (01) ==
LOC: EDH 16:43 → EDHIP 21:00 → 3AH 23:27
PROVIDERS: ADMIT Internal Medicine Critical Care Medicine; ATTEND Internal Medicine Critical Care Medicine
DX: K94.02 Colostomy infection (principal); Z20.822 Contact with and (suspected) exposure to COVID-19; N17.9 Acute kidney failure, unspecified; E11.9 Type 2 diabetes mellitus without complications; I10 Essential (primary) hypertension; E78.5 Hyperlipidemia, unspecified; E78.00 Pure hypercholesterolemia, unspecified; J44.9 Chronic obstructive pulmonary disease, unspecified; E66.01 Morbid (severe) obesity due to excess calories; Z96.651 Presence of right artificial knee joint; Z95.5 Presence of coronary angioplasty implant and graft; Z79.899 Other long term (current) drug therapy
CPT/HCPCS: 96361 ×2; 96365; 96366 ×3; 96375 ×2; 99285; 82550; 84484; 80053; 85025 ×2; 85610; 85730; 87040 ×2; 87077; 87088; 87186; 83605; 81001; 36415 ×3; 87635; 71045; 74176; 93005; 83735; 84100; 80048 ×2; 82948 ×6; 85027; G0378 ×44; J7120; J2405; J2270; J2543 ×4; J1815; J1170